=== PATIENT | female | born 1955 | race Caucasian/White ===

== ENCOUNTER 2020-02-20 06:35 | Observation (INO) ==
[2020-02-20] MEDS ORDERED: oxyCODONE/APAP 5/325MG TABLET PO ONE ×2 (06:58→12:42)
--- NOTE | 2020-02-20 07:09 | Emergency Department Note ---
Extremity Problem HPI General Chief complaint: Extremity Problem,Nontraumatic Stated complaint: Right knee pain Time Seen by Provider: 02/20/20 06:58 Source: patient Mode of arrival: EMS Limitations: no limitations History of Present Illness HPI Narrative: 64-year old patient presenting to the emergency department with a chief complaint of injury to the right knee patient with recent knee replacement having increasing pain last night. Patient reporting mechanism of injury was operative. This issue occurred less than 12 hours ago patient reports took hydrocodone without benefit her daughter also was unavailable to help care for her which she was anticipating. Exacerbating features are attempting to move it, pressure. Ameliorating factors are immobilization, pain medications. Patient denying symptoms of pain out of proportion to the extremity, pallor to the extremity, other color change, or paresthesias in the extremity. Patient denies injury to other parts of the body at the same time. Related Data Home Medications Medication Instructions Recorded Confirmed duloxetine [Cymbalta] 60 mg PO BID 03/05/17 02/17/20 Tymlos 80 mcg SUBCUT QDAY 02/10/20 02/17/20 gabapentin 600 mg PO TID 02/10/20 02/17/20 hydrocodone-acetaminophen 1 - 2 tab PO Q6H PRN 02/10/20 02/17/20 lisinopril 10 mg PO QDAY 02/10/20 02/17/20 lorazepam 1 mg PO TID PRN 02/10/20 02/17/20 nortriptyline 25 mg PO QHS 02/10/20 02/17/20 omeprazole 20 mg PO QDAY 02/10/20 02/17/20 Previous Rx's Medication Instructions Recorded aspirin 81 mg PO BID 14 Days #28 tab 02/18/20 hydrocodone-acetaminophen 1 tab PO Q4HP PRN #90 tab 02/18/20 methocarbamol 750 mg PO Q6HP PRN #60 tab 02/18/20 oxycodone 5 mg PO TID PRN #6 cap 02/20/20 Allergies Allergy/AdvReac Type Severity Reaction Status Date / Time topiramate [From Topamax] AdvReac Unknown Verified 02/20/20 06:41 Review of Systems ROS ROS Narrative: Narrative: All systems ED: reviewed and negative except as stated. PFSH Narrative Patient History Narrative: Narrative: Total knee replacement Medical/Surgical/Family History All Active Problems (Updated 02/20/20 @ 07:09 by Alek Mchugh MD) Encounter for post surgical wound check (Acute) Social History Smoking Status: Never smoker Exam Narrative Narrative: Narrative: General: Alert, interactive, appropriate Head: Atraumatic, normocephalic Eyes: Extraocular movements intact, sclera anicteric, no conjunctival injection Ears: Pinnae normal, no discharge Mouth: Oral mucosa moist, no acute swelling or evidence of infection Nares: No nasal discharge, patent bilaterally Neck: Trachea midline, full range of motion Chest: Symmetrical chest wall rise, breathing normally; nonlabored respirations Cardiovascular: Patient with excellent perfusion to the extremities; without tachycardia/bradycardia Extremities: Full range of motion in other joints, other extremities were warm well perfused, motor testing and ROM were intact, pt with intact sensation to the dorsal and plantar surfaces of his foot, affected extremity was with/out pulses +2 and symmetric posterior tibial and dorsalis pedis, there was/ not gross/subtle deformity of the area; patient states pain in the lower extremity feels it may be related to wearing compression stockings patient with good color and circulation distal lower extremity, contusion locally around the knee, no drainage or unusual erythema Neuro: Alert, oriented x3, cranial nerves II through XII grossly intact, patient without lateralizing findings such as weakness, or abnormal reflexes Psychiatric: Normal affect, normal mood General Limitations: no limitations Course Vital Signs Vital signs: Vital Signs Temperature 97.3 F 02/20/20 06:36 Pulse Rate 97 H 02/20/20 06:36 Respiratory Rate 16 02/20/20 06:36 Blood Pressure 135/91 02/20/20 06:36 Pulse Oximetry (%) 97 02/20/20 06:36 Temperature 97.3 F 02/20/20 06:36 Pulse Rate 97 H 02/20/20 06:36 Respiratory Rate 16 02/20/20 06:36 Blood Pressure 135/91 02/20/20 06:36 Pulse Oximetry (%) 97 02/20/20 06:36 [facility] Narrative Medical decision making narrative: This patient presenting with chief complaint of lower extremity injury. Patient was evaluated with combination of history/physical exam/radiologic evaluation. Diagnosis conclusion this case is patient has sustained a normal postoperative course for knee replacement. Patient is without evidence of acute neurovascular compromise of the extremity. In my medical opinion at this time patient can most reasonably be managed as an outpatient. I am also of the opinion that this patient does not have an acute emergent medical condition that would require admission transfer or additional laboratory/radiologic investigation. Discharge Plan Patient/Caregiver Discharge Instructions Pt seen by EMPLOYEE RELATIONS ADVISOR/PA only: No Clinical Impression: Encounter for post surgical wound check Activity Restrictions/Additional Instructions: Thank you, Keli Amaya, for coming to [facility] for your emergency medicine needs today. As your doctor today, Dr. Mchugh it is my greatest wish that we did address your concerns to the best of our ability in the emergency department. It is not infrequent that we are unable to arrive to a specific diagnostic conclusion in every case, however you do not have acute surgical wound infection, evidence of vascular insufficiency/DVT or other acute emergent pathology. Will give short course of oxycodone at this time. Return to the emergency department for any concerns, specifically any changes to the blood supply to your injured extremity, evidence of infection, or concerns for excessive pain. Please obtain consultation with your primary care physician within 7 days. Oftentimes patients must return to the emergency department for further evaluations if there are symptom changes/persistence. Simply put, if you are worried I am worried. Patient Disposition: Home, Self-Care Condition: Good Follow up with: Myrtle Merida ARNP [Primary Care Provider] - Prescriptions: New oxycodone 5 mg capsule 5 mg PO TID PRN (Reason: pain) Qty: 6 RF: 0 No Action duloxetine [Cymbalta] 60 MG capsule,delayed release(DR/EC) 60 mg PO BID RF: 0 hydrocodone-acetaminophen 10-325 mg Tablet 1 - 2 tab PO Q6H PRN (Reason: Pain) RF: 0 gabapentin 600 mg Tablet 600 mg PO TID RF: 0 nortriptyline 25 mg Capsule 25 mg PO QHS RF: 0 lisinopril 10 mg Tablet 10 mg PO QDAY RF: 0 omeprazole 20 mg Capsule,Delayed Release(Dr/Ec) 20 mg PO QDAY RF: 0 lorazepam 1 mg Tablet 1 mg PO TID PRN (Reason: Anxiety) RF: 0 Tymlos 80 mcg (3,120 mcg/1.56 mL) Pen Injector 80 mcg SUBCUT QDAY RF: 0 hydrocodone-acetaminophen 10-325 mg Tablet 1 tab PO Q4HP PRN (Reason: Per Pain Protocol) Qty: 90 RF: 0 methocarbamol 750 mg Tablet 750 mg PO Q6HP PRN (Reason: Muscle Spasm) Qty: 60 RF: 0 aspirin 81 mg Tablet,Chewable 81 mg PO BID 14 Days Qty: 28 RF: 0
[2020-02-20] MEDS ORDERED: KETOROLAC 15 MG/ML VIAL IV ONE (09:10)
[2020-02-20] MEDS ORDERED: HYDROmorphone 0.5 MG/0.5 ML SYRINGE IV PRN (10:20)
--- NOTE | 2020-02-20 12:30 | Internal Med History&Physical ---
HPI History of Present Illness Patient information: Note initiated : 02/20/20 at 12:26 pm Service Date, if different from initiated Date: [] Patient: Keli Byers a 64 y/o F admitted on for Right knee pain. Chief Complaint: Right knee postop pain History of present illness: Ms. Byers is a 64 year old F with a history of hypertension/neuropathy who recently underwent right knee replacement on 02/16. Patient was discharged home however patient continues to experience debilitating pain. Family was unable to take care of her. Patient has not been able to move or function due to immobilizing pain rated 6 out of 10-10 out of 10. Patient presents to the ER for evaluation. Following multiple attempts at opioid/pain management patient failed to improve and hence hospital service was requested for admission for pain management and until a safe discharge plan is available. At the time of my evaluation patient is alert but anxious. She endorses that the swelling and pain has progressively worsened to the point she is unable to ambulate or if bend her knee. She was not able to get out of the bathroom today for the same reason. She also noticed bruising around inside of the knee. She denies associated fever chills, fall Review of systems 10 point review system was performed and is negative except for ones cussed above PFSH PFSH All Active Problems (Updated 02/20/20 @ 07:09 by Alek Mchugh MD) Encounter for post surgical wound check (Acute) Social History smoking status: Never smoker MEDS/ALLERGIES Home Medications and Allergies Home Medications Medication Instructions Recorded Confirmed Type duloxetine [Cymbalta] 60 mg PO BID 03/05/17 02/17/20 History Tymlos 80 mcg SUBCUT QDAY 02/10/20 02/17/20 History gabapentin 600 mg PO TID 02/10/20 02/17/20 History hydrocodone-acetaminophen 1 - 2 tab PO Q6H PRN 02/10/20 02/17/20 History lisinopril 10 mg PO QDAY 02/10/20 02/17/20 History lorazepam 1 mg PO TID PRN 02/10/20 02/17/20 History nortriptyline 25 mg PO QHS 02/10/20 02/17/20 History omeprazole 20 mg PO QDAY 02/10/20 02/17/20 History aspirin 81 mg PO BID 14 Days #28 tab 02/18/20 Rx hydrocodone-acetaminophen 1 tab PO Q4HP PRN #90 tab 02/18/20 Rx methocarbamol 750 mg PO Q6HP PRN #60 tab 02/18/20 Rx oxycodone 5 mg PO TID PRN #6 cap 02/20/20 Rx Allergies Allergy/AdvReac Type Severity Reaction Status Date / Time topiramate [From Topamax] AdvReac Unknown Verified 02/20/20 06:41 EXAM Constitutional Vitals: Temp Pulse Resp BP Pulse Ox 97.3 F 88 16 134/80 96 02/20/20 06:36 02/20/20 11:28 02/20/20 06:36 02/20/20 11:15 02/20/20 11:28 Head normocephalic Oral cavity moist No ear nose discharge Eye movement symmetrical Neck supple no lymphadenopathy S1-S2 regular Nonlabored breathing Nondistended nontender abdomen Right knee swollen along with increasing ecchymosis/bruising and restricted movement due to pain. No fluctuance Skin no suspicious lesion Psych anxious but alert cooperative Neuro normal higher function A/P Narrative A/P Narrative: * Right knee postoperative pain/swelling-continue management opioids. Orthopedic consult, ultrasound knee/tib-fib/femur imaging * History neuropathy continue gabapentin * Hypertension continue HELLEN inhibitor * Prophylaxis on twice daily aspirin per orthopedics Plan * Observation admit * Pain management * Orthopedic consult * Right knee ultrasound/tibia and femur imaging * Pre-existing medical condition management home meds * PT OT Time Spent With Patient Time: Total time spent is greater than 50% in coordination of care (as documented) at patient's floor/unit and/or counseling patient:
[2020-02-20] MEDS ORDERED: ONDANSETRON 4 MG ODT TABLET SL PRN (13:29)
[2020-02-20] MEDS ORDERED: ONDANSETRON 4 MG/2 ML VIAL IV PRN (13:29)
[2020-02-20] MEDS ORDERED: MELATONIN 3 MG TABLET PO PRN (13:29)
[2020-02-20] MEDS ORDERED: ACETAMINOPHEN 650 MG/65 ML BOTTLE IV PRN (13:29)
[2020-02-20] MEDS ORDERED: HYDROcodone/APAP 5/325MG TABLET PO PRN (13:29)
[2020-02-20] MEDS ORDERED: MAGNESIUM SULFATE 2 GM/50 ML BAG IV PRN (13:29)
[2020-02-20] MEDS ORDERED: POTASSIUM CHLORIDE 20 MEQ PACKET PO PRN (13:29)
[2020-02-20] MEDS ORDERED: traMADol 50 MG TABLET PO PRN (13:29)
[2020-02-20] MEDS ORDERED: BISACODYL 10 MG SUPP.RECT PR PRN (13:29)
[2020-02-20] MEDS ORDERED: ACETAMINOPHEN 325 MG TABLET PO PRN (13:29)
[2020-02-20] MEDS: POLYETHYLENE GLYCOL 3350 17 GM PACKET PO PRN (16:49)
[2020-02-20] MEDS: 0.9 % SODIUM CHLORIDE 10 ML SYRINGE IV SCH ×2 (16:49→20:53)
--- NOTE | 2020-02-20 17:30 | XRay Report ---
CLINICAL INFORMATION: Pain and swelling COMPARISON: None. FINDINGS: Right total knee prostheses is anatomically aligned without loosening or infection. There is no osseous abnormality. The ankle mortise, talocalcaneal and all midfoot joints joints normal in width and alignment arthritic change. There is moderate diffuse soft tissue swelling. IMPRESSION: Moderate diffuse soft tissue tissue swelling typically indicative of edema or cellulitis Interpreted and Authenticated by: Franklin Corona 02/20/20
--- NOTE | 2020-02-20 17:32 | XRay Report ---
CLINICAL INFORMATION: pain andf swelling COMPARISON: None. FINDINGS: Right total hip prostheses and right total knee prostheses are anatomically aligned without loosening or infection. There are no osseous abnormalities. Moderate diffuse soft tissue swelling noted. IMPRESSION: Moderate diffuse soft tissue swelling typically indicative of edema or cellulitis. Interpreted and Authenticated by: Franklin Corona 02/20/20
--- NOTE | 2020-02-20 17:33 | Ultrasound Report ---
CLINICAL INFORMATION: knee swelling and pain- post op r/o ghematoma COMPARISON: None. FINDINGS: Diffuse edema appreciated but there is no fluid collection to suggest hematoma or abscess. IMPRESSION: No fluid collection suggest hematoma or abscess Interpreted and Authenticated by: Franklin Corona 02/20/20
[2020-02-20] MEDS: HYDROmorphone 0.5 MG/0.5 ML SYRINGE IV PRN ×2 (17:47→22:42)
[2020-02-20] MEDS ORDERED: LORazepam 1 MG TABLET PO PRN (19:29)
[2020-02-20] MEDS: HEPARIN 5,000 UNIT/ML VIAL SQ SCH (20:50)
[2020-02-20] MEDS: GABAPENTIN 300 MG CAPSULE PO SCH (20:51)
[2020-02-20] MEDS: DULoxetine 30 MG CAPSULE PO SCH (20:51)
[2020-02-20] MEDS: HYDROcodone/APAP 10/325MG TABLET PO PRN (20:51)
[2020-02-20] MEDS: SENNOSIDES/DOCUSATE SODIUM 1 TAB TABLET PO SCH (20:52)
[2020-02-20] MEDS: ASPIRIN 81 MG TAB.CHEW PO SCH (20:52)
[2020-02-20] MEDS: NORTRIPTYLINE 25 MG CAPSULE PO SCH (20:52)
[2020-02-20] MEDS: DOCUSATE SODIUM 100 MG CAPSULE PO SCH (20:53)
[2020-02-20] MEDS: METHOCARBAMOL 750 MG TABLET PO PRN (23:10)
[2020-02-21] MEDS: HYDROcodone/APAP 10/325MG TABLET PO PRN ×2 (01:42→06:10)
[2020-02-21] MEDS: HYDROmorphone 0.5 MG/0.5 ML SYRINGE IV PRN ×2 (02:50→18:50)
[2020-02-21] MEDS: 0.9 % SODIUM CHLORIDE 10 ML SYRINGE IV SCH ×3 (06:11→22:20)
[2020-02-21] MEDS: METHOCARBAMOL 750 MG TABLET PO PRN ×2 (06:11→21:43)
--- NOTE | 2020-02-21 08:19 | Progress Note ---
DATE OF VISIT: 02/20/2020 Patient was admitted yesterday for pain control and because her sister had a fever. She was discharged on Friday on hydrocodone. She was readmitted by the hospitalist for pain control and because she feels she needs to go to a residential. Physical exam this morning shows swelling of the leg. Her scratching looks better. Her wound is covered. There is no redness surrounding the small midline incision. She is readmitted until disposition is worked out. I upped her to morphine for better pain control as the hydrocodone was not strong enough. She will be continued on aspirin and will resume physical therapy and CPM. TJF:[email or web address] Job ID: [id number] Doc ID: [id number] Jose Manuel Tinoco MD
[2020-02-21 08:23] LABS: Eosinophils % (Manual) 3 % (0-7); Hematocrit 33.5 % (36.0-48.0); Hemoglobin 10.6 g/dL (12.0-15.0); Lymphocytes % 24 % (15-49); Mean Cell Volume 93.1 fL (80.0-100.0); Mean Corpuscular HGB Conc 31.6 g/dL (31.0-36.0); Mean Platelet Volume 9.8 fL (7.4-10.4); Monocytes % (Manual) 11 % (1-12); Platelet Count 316 K/mcL (140-440); Platelet Estimate NORMAL (Normal); RBC Morphology NORMAL (Normal); Red Cell Distribution Width 13.2 % (11.5-14.5); Segmented Neutrophils % 62 % (38-78); WBC 10.3 K/mcL (4.5-11.0)
[2020-02-21 09:32] LABS: ALT/SGPT 11 U/L (<40); AST/SGOT 20 U/L (<32); Albumin 3.6 gm/dL (3.2-5.2); Albumin/Globulin Ratio 1.3 (1.0-2.3); Alkaline Phosphatase 63 U/L (39-117); Bilirubin,Direct < 0.2 mg/dL (<0.3); Bilirubin,Total 0.5 mg/dL (0.1-1.0); Blood Urea Nitrogen 14 mg/dL (8-23); Calcium 9.1 mg/dL (8.6-10.4); Carbon Dioxide 27 mmol/L (22-30); Chloride 98 mmol/L (96-108); Globulin 2.8 gm/dL (2.2-3.7); Glomerular Filtration Rate 76; Glucose 99 mg/dL (70-105); Lactate Dehydrogenase 293 U/L (135-225); Phosphorous 4.8 mg/dL (2.5-4.5); Triglycerides 109 mg/dL (<150); Uric Acid 4.1 mg/dL (2.5-8.0)
[2020-02-21] MEDS: MULTIVIT,THER IRON,CA,FA & MIN 1 TABLET PO SCH (09:58)
[2020-02-21] MEDS: GABAPENTIN 300 MG CAPSULE PO SCH ×3 (09:58→21:33)
[2020-02-21] MEDS: DULoxetine 30 MG CAPSULE PO SCH ×2 (09:58→21:32)
[2020-02-21] MEDS: DOCUSATE SODIUM 100 MG CAPSULE PO SCH ×2 (09:58→21:33)
[2020-02-21] MEDS: ASPIRIN 81 MG TAB.CHEW PO SCH ×2 (09:58→21:33)
[2020-02-21] MEDS: OMEPRAZOLE 20 MG CAPSULE PO SCH (09:58)
[2020-02-21] MEDS: LISINOPRIL 10 MG TABLET PO SCH (09:58)
[2020-02-21] MEDS: HEPARIN 5,000 UNIT/ML VIAL SQ SCH ×2 (09:59→21:32)
[2020-02-21] MEDS: ABALOPARATIDE 80 MCG SUB-Q SCH (09:59)
[2020-02-21] MEDS: morphine 15 MG TABLET PO PRN ×4 (11:00→21:43)
[2020-02-21] MEDS: NORTRIPTYLINE 25 MG CAPSULE PO SCH (21:33)
[2020-02-21] MEDS: SENNOSIDES/DOCUSATE SODIUM 1 TAB TABLET PO SCH (21:33)
--- NOTE | 2020-02-21 22:44 | Internal Med Progress Note ---
SUBJECTIVE Subjective Patient information: Note initiated : 02/21/20 at 10:44 pm Service Date, if different from initiated Date: [] Patient: Keli Byers a 64 y/o F admitted on 02/20/20 for Right knee pain. Chief Complaint: History of present illness: Ms. Byers is a 64 year old F with a history of hypertension/neuropathy who recently underwent right knee replacement on 02/16. Patient was discharged home however patient continues to experience debilitating pain. Family was unable to take care of her. Patient has not been able to move or function due to immobilizing pain rated 6 out of 10-10 out of 10. Patient presents to the ER for evaluation. Following multiple attempts at opioid/pain management patient failed to improve and hence hospital service was requested for admission for pain management and until a safe discharge plan is available. At the time of my evaluation patient is alert but anxious. She endorses that the swelling and pain has progressively worsened to the point she is unable to ambulate or if bend her knee. She was not able to get out of the bathroom today for the same reason. She also noticed bruising around inside of the knee. She denies associated fever chills, fall 02/20 -patient doing well. No significant concerns per orthopedics. Ongoing physical therapy. Lower extremity imaging unremarkable for hematoma/effusions. Continue pain management as per orthopedics. Likely discharge in 24 hours. Constitutional Vitals: Vital Signs Temp Pulse Resp BP Pulse Ox 98.3 F 104 H 20 121/70 95 02/21/20 21:44 02/21/20 21:44 02/21/20 21:44 02/21/20 21:44 02/21/20 21:44 Period Temp Pulse Resp BP Sys/Velasquez Pulse Ox Last 24 Hr 97.3 F-98.6 F 84-104 16-20 111-132/70-86 91-96 Intake and Output 02/21/20 02/21/20 02/22/20 13:59 21:59 05:59 Intake Total 1280 Output Total 250 Balance 1030 Weight 84.232 kg Patient Weight 02/22/20 05:59 Weight 84.232 kg alert oriented nonlabored breathing Right knee swelling improved No anxiety Intake & Output: Intake & Output 02/21/20 02/21/20 02/22/20 13:59 21:59 05:59 Intake Total 1280 Output Total 250 Balance 1030 Weight 84.232 kg Intake: Oral 1280 Output: Void Amount 250 Other: Meal Lunch Percent of Meal Consumed 100% Feeding Ability Independent Urine Appearance Clear Clear Urine Color Bright Yellow Straw Urine Odor Normal # Voids 1 1 OBJ DATA Labs CBC & Chem 7: 02/21/20 05:11 02/21/20 05:11 Labs: Abnormal Lab Results 02/21/20 02/21/20 05:11 05:11 RBC 3.60 L Hgb 10.6 L Hct 33.5 L Phosphorus 4.8 H Lactate Dehydrogenase 293 H C-Reactive Protein 13.40 H Meds: Medications Acetaminophen (Tylenol) 650 mg PO Q4-6HP PRN; Protocol PRN Reason: Per Pain Protocol/Fever > 101 Aspirin (Aspirin) 81 mg PO BID [facility] Last Admin: 02/21/20 21:33 Dose: 81 mg Documented by: Bisacodyl (Dulcolax) 10 mg SC Q2-3DAYS PRN PRN Reason: Constipation Docusate Sodium (Colace) 100 mg PO BID [facility] Last Admin: 02/21/20 21:33 Dose: 100 mg Documented by: Duloxetine HCl (Cymbalta) 60 mg PO BID [facility] Last Admin: 02/21/20 21:32 Dose: 60 mg Documented by: Gabapentin (Neurontin) 600 mg PO TID [facility] Last Admin: 02/21/20 21:33 Dose: 600 mg Documented by: Heparin Sodium (Porcine) (Heparin) 5,000 unit SQ Q12 [facility] Last Admin: 02/21/20 21:32 Dose: 5,000 unit Documented by: Hydromorphone HCl (Dilaudid) 0.25 - 0.5 mg IV Q4HP PRN; Protocol PRN Reason: Per Pain Protocol Last Admin: 02/21/20 18:50 Dose: 0.5 mg Documented by: Acetaminophen (Ofirmev) 650 mg in 65 mls @ 130 mls/hr IV Q6HP PRN; Protocol PRN Reason: Per Pain Protocol/Fever > 101 Magnesium Sulfate (Magnesium Sulfate) 2 gm in 50 mls @ 50 mls/hr IV UD PRN PRN Reason: MG = or < 1.7 Iron Carb/Multivit/[place]/Folic Acid (Multivitamin W/Minerals) 1 tab PO DAILY [facility] Last Admin: 10/19/20 09:58 Dose: 1 tab Documented by: Lisinopril (Zestril) 10 mg PO QDAY [facility] Last Admin: 02/21/20 09:58 Dose: 10 mg Documented by: Lorazepam (Ativan) 1 mg PO TIDP PRN PRN Reason: Anxiety Last Admin: 02/20/20 23:10 Dose: 1 mg Documented by: Melatonin (Melatonin 3mg Tablet) 3 mg PO HSP PRN PRN Reason: Insomnia Methocarbamol (Robaxin) 750 mg PO Q6HP PRN PRN Reason: Muscle Spasm Last Admin: 02/21/20 21:43 Dose: 750 mg Documented by: Morphine Sulfate (Morphine) 15 - 30 mg PO Q4HP PRN PRN Reason: Pain Last Admin: 02/21/20 21:43 Dose: 15 mg Documented by: Nortriptyline HCl (Pamelor) 25 mg PO QHS [facility] Last Admin: 02/21/20 21:33 Dose: 25 mg Documented by: Omeprazole (Prilosec) 20 mg PO QDAY [facility] Last Admin: 02/21/20 09:58 Dose: 20 mg Documented by: Ondansetron HCl (Zofran Odt) 4 mg SL Q4-6HP PRN; Protocol PRN Reason: Nausea And Vomiting Ondansetron HCl (Zofran) 4 mg IV Q4-6HP PRN; Protocol PRN Reason: Nausea And Vomiting Abaloparatide [ Tymlos] 80 Mcg Syringe 80 dose SUB-Q QDAY [facility] Last Admin: 02/21/20 09:59 Dose: Not Given Documented by: Polyethylene Glycol (Miralax) 17 gm PO DAILYP PRN PRN Reason: Constipation Last Admin: 02/20/20 16:49 Dose: 17 gm Documented by: Potassium Chloride (Klor-Con) 40 meq PO DAILYP PRN PRN Reason: K+ < 3.5 Senna/Docusate Sodium (Senna Plus Tablet) 1 tab PO HS [facility] Last Admin: 02/21/20 21:33 Dose: 1 tab Documented by: Sodium Chloride (Saline Flush) 10 ml IV Q8 [facility] Last Admin: 02/21/20 14:10 Dose: 10 ml Documented by: A/P Narrative A/P Narrative: * Right knee postoperative pain/swelling-no significant abnormality on lower extremity imaging. Orthopedic on board, continue pain management * History neuropathy continue gabapentin * Hypertension continue HELLEN inhibitor * Prophylaxis on twice daily aspirin per orthopedics Plan * Continue pain management/therapies as per orthopedics * Pre-existing medical condition management home meds * PT OT * Discharge likely in 24 hours Time Spent With Patient Time: Total time spent is greater than 50% in coordination of care (as documented) at patient's floor/unit and/or counseling patient:
[2020-02-22] MEDS: morphine 15 MG TABLET PO PRN ×3 (01:39→13:10)
[2020-02-22] MEDS: 0.9 % SODIUM CHLORIDE 10 ML SYRINGE IV SCH (06:11)
--- NOTE | 2020-02-22 06:31 | XRay Report ---
INDICATION: Knee pain TECHNIQUE: AP portable semiupright chest x-ray COMPARISON: Previous chest x-rays dated 03/08/2019 and 02/23/2019 FINDINGS: Lungs:Lungs are negative. No focal pulmonary parenchymal infiltrate or mass Heart, vascular:No significant cardiomegaly. Pulmonary vascularity is normal. No pulmonary edema or pulmonary congestion Mediastinum, luis carlos:No mediastinal widening. No hilar mass Pleura:No pleural fluid. No pleural-based mass or calcification Skeletal:Negative. IMPRESSION: 1. Negative AP chest x-ray 2. No significant interval change Interpreted and Authenticated by: Franklin Hinton 02/22/20
--- NOTE | 2020-02-22 08:43 | Discharge Summary ---
Discharge Provider Provider Patient information: Note initiated : 02/22/20 at 8:41 am Service Date, if different from initiated Date: [] Patient: Keli Byers a 64 y/o F admitted on 02/20/20 for Right knee pain. Discharge diagnosis * Right knee postoperative pain/swelling-clinically improved. No evidence of effusion/hematoma on imaging. Discharging with advise to continue home health PT/follow-up with orthopedics and pain management as per orthopedics. * History neuropathy continue gabapentin * Hypertension continue HELLEN inhibitor Brief hospital course History of present illness: Ms. Byers is a 64 year old F with a history of hypertension/neuropathy who recently underwent right knee replacement on 02/16. Patient was discharged home however patient continues to experience debilitating pain. Family was unable to take care of her. Patient has not been able to move or function due to immobilizing pain rated 6 out of 10-10 out of 10. Patient presents to the ER for evaluation. Following multiple attempts at opioid/pain management patient failed to improve and hence hospital service was requested for admission for pain management and until a safe discharge plan is available. At the time of my evaluation patient is alert but anxious. She endorses that the swelling and pain has progressively worsened to the point she is unable to ambulate or bend her knee. She was not able to get out of the bathroom today for the same reason. She also noticed bruising around inside of the knee. She denies associated fever chills, fall 02/20 -patient doing well. No significant concerns per orthopedics. Ongoing physical therapy. Lower extremity imaging unremarkable for hematoma/effusions. Continue pain management as per orthopedics. Likely discharge in 24 hours. 02/21-patient doing well. Discharging home with home health physical therapy. Pain in good control. Noticed significant postoperative swelling. Date of admission: 02/20/20 13:17 Discharge date: 02/22/20 Primary care physician: Myrtle Merida Consults: 02/20/20 Consult to Physician [CONS] Stat Comment: Consulting Provider: Boris Dickey Reason For Exam: Physician to Consult 02/21/20 08:25 Consult to Physician [CONS] Routine Comment: Consulting Provider: [facility] Reason For Exam: Physician to Consult Discharge Meds Discharge Medications Home Medications duloxetine [Cymbalta] 60 mg PO BID 03/05/17 [History Confirmed 02/20/20 Last Taken 1 Day Ago ~02/19/20] Tymlos 80 mcg SUBCUT QDAY 02/10/20 [History Confirmed 02/20/20 Last Taken 1 Day Ago ~02/19/20] gabapentin 600 mg PO TID 02/10/20 [History Confirmed 02/20/20 Last Taken 1 Day Ago ~02/19/20] lisinopril 10 mg PO QDAY 02/10/20 [History Confirmed 02/20/20 Last Taken 1 Day Ago ~02/19/20] lorazepam 1 mg PO TID PRN 02/10/20 [History Confirmed 02/20/20 Last Taken 1 Day Ago ~02/19/20] nortriptyline 25 mg PO QHS 02/10/20 [History Confirmed 02/20/20 Last Taken 1 Day Ago ~02/19/20] omeprazole 20 mg PO QDAY 02/10/20 [History Confirmed 02/20/20 Last Taken 1 Day Ago ~02/19/20] aspirin 81 mg PO BID 14 Days #28 tab 02/18/20 [Rx Confirmed 02/20/20 Last Taken 1 Day Ago ~02/19/20] methocarbamol 750 mg PO Q6HP PRN #60 tab 02/18/20 [Rx Confirmed 02/20/20 Last Taken 1 Day Ago ~02/19/20] oxycodone 5 mg PO TID PRN #6 cap 02/20/20 [Rx Last Taken Unknown] methocarbamol 750 mg PO Q6HP PRN #14 tab 02/22/20 [Rx Last Taken Unknown] COURSE Hospital Course Hospital course: . Discharge diagnosis: . Time Spent with Patient Time attestation: Total time spent providing and/or coordinating discharge services: EXAM Constitutional Vitals: Temp Pulse Resp BP Pulse Ox 98.1 F 95 H 18 116/77 92 02/22/20 07:01 02/22/20 07:01 02/22/20 07:01 02/22/20 07:01 02/22/20 07:01 Discharge Data Data Completed and Pending Labs on day of discharge: Labs from last 24 hours 02/22/20 02/22/20 02/21/20 05:18 05:18 05:11 WBC Pending RBC Pending Hgb Pending Hct Pending MCV Pending MCH Pending MCHC Pending RDW Pending Plt Count Pending MPV Pending Band Neutrophils % Pending Platelet Estimate Pending RBC Morphology Pending Sodium Pending 136 Potassium Pending 4.8 Chloride Pending 98 Carbon Dioxide Pending 27 Anion Gap Pending 11.0 BUN Pending 14 Creatinine Pending 0.8 GFR Calculation Pending 76 Glucose Pending 99 Uric Acid Pending 4.1 Calcium Pending 9.1 Phosphorus Pending 4.8 H Magnesium Pending 2.2 Total Bilirubin Pending 0.5 Direct Bilirubin Pending < 0.2 GGT Pending 16 AST Pending 20 ALT Pending 11 Alkaline Phosphatase Pending 63 Lactate Dehydrogenase Pending 293 H C-Reactive Protein 13.40 H Total Protein Pending 6.4 Albumin Pending 3.6 Globulin Pending 2.8 Albumin/Globulin Ratio Pending 1.3 Triglycerides Pending 109 Discharge Plan Patient/Caregiver Discharge Instructions Activity: increase activity as tolerated Diet: Regular Diet Instructions: Laxative, Stool Softeners (By mouth), Morphine, Slow Release (By mouth), Pain Management (DC) Activity Restrictions/Additional Instructions: Resume home diet as tolerated Take all meals up in chair sitting at 90 degrees. Continue fall precautions. Weight bearing/activity and joint mobilization as per orthopedics. Weight bearing as tolerated. Continue physical therapy as previously. Please cloth picker CPM from [facility] (within 24 hours of discharge). Instructions for use: Start CPM at 40 degrees flexion and advance as tolerated to 90 degrees flexion. Use 3x daily for 2 hrs each time as tolerated. Follow up with Myrtle Merida on 02/27. Check in at 9:45 am. Take all medication as directed. Your prescriptions are with your discharge paperwork. Take your prescription, insurance cards, and photo ID to cloth picker your medication. Pain medication can cause constipation; continue to take an over the counter stool softener and/or laxative twice daily while on pain medication. Continue to take aspirin 81mg 2x daily as previously prescribed. Take aspirin 2x daily through Feb 25 evening dose. Use home supply of Robaxin. Return to ER if worsening fever, chills, nausea and/or vomiting, uncontrolled pain, chest pain, shortness of breath, diarrhea, unable to go to the bathroom, bleeding, return of symptoms, or other acute symptom. This discharge packet is provided to you to help keep you informed about your care. We want to ensure you get everything you need when you go home. You will also be receiving a call from us in a few days to follow up with you and see how you are doing since your discharge. This gives us a chance to listen to any concerns you maybe experiencing since you were discharged or any additional needs you may have, as well as providing us feedback on your care experience. We strive to always provide excellent care and thank you for your feedback and for choosing [facility]. Prescriptions: New oxycodone 5 mg capsule 5 mg PO TID PRN (Reason: pain) Qty: 6 RF: 0 methocarbamol 750 mg Tablet 750 mg PO Q6HP PRN (Reason: Muscle Spasm) Qty: 14 RF: 0 Continued duloxetine [Cymbalta] 60 MG capsule,delayed release(DR/EC) 60 mg PO BID RF: 0 gabapentin 600 mg Tablet 600 mg PO TID RF: 0 nortriptyline 25 mg Capsule 25 mg PO QHS RF: 0 lisinopril 10 mg Tablet 10 mg PO QDAY RF: 0 omeprazole 20 mg Capsule,Delayed Release(Dr/Ec) 20 mg PO QDAY RF: 0 lorazepam 1 mg Tablet 1 mg PO TID PRN (Reason: Anxiety) RF: 0 Tymlos 80 mcg (3,120 mcg/1.56 mL) Pen Injector 80 mcg SUBCUT QDAY RF: 0 methocarbamol 750 mg Tablet 750 mg PO Q6HP PRN (Reason: Muscle Spasm) Qty: 60 RF: 0 aspirin 81 mg Tablet,Chewable 81 mg PO BID 14 Days Qty: 28 RF: 0 Discontinued hydrocodone-acetaminophen 10-325 mg Tablet 1 - 2 tab PO Q6H PRN (Reason: Pain) RF: 0 hydrocodone-acetaminophen 10-325 mg Tablet 1 tab PO Q4HP PRN (Reason: Per Pain Protocol) Qty: 90 RF: 0 Other Ambulatory Orders: CPM Discharge Order (ONCE) Location: None Selected Ordered By: Jose Manuel Tinoco Follow Up Plan Follow up with: Myrtle Merida ARNP [Primary Care Provider] - Patient Disposition: Home Health Service Prognosis: Good Rehab Potential: Fair I certify that the patient requires SNF services: No Overall status at discharge: patient is progressing back to baseline Discharge Date/Time: 02/22/20 13:15 Discharge Orders: Discharge Order (Routine); Ordered 02/22/20 Ordered By: Boris Dickey Discharge Comment: Wheeled pt to exit and met daughter
[2020-02-22 08:53] LABS: ALT/SGPT 11 U/L (<40); AST/SGOT 16 U/L (<32); Albumin 3.4 gm/dL (3.2-5.2); Albumin/Globulin Ratio 1.3 (1.0-2.3); Alkaline Phosphatase 64 U/L (39-117); Bilirubin,Direct < 0.2 mg/dL (<0.3); Bilirubin,Total 0.4 mg/dL (0.1-1.0); Blood Urea Nitrogen 14 mg/dL (8-23); Calcium 8.6 mg/dL (8.6-10.4); Carbon Dioxide 25 mmol/L (22-30); Chloride 97 mmol/L (96-108); Globulin 2.6 gm/dL (2.2-3.7); Glomerular Filtration Rate 76; Glucose 111 mg/dL (70-105); Lactate Dehydrogenase 257 U/L (135-225); Phosphorous 3.3 mg/dL (2.5-4.5); Triglycerides 129 mg/dL (<150); Uric Acid 4.4 mg/dL (2.5-8.0)
[2020-02-22] MEDS: GABAPENTIN 300 MG CAPSULE PO SCH (09:02)
[2020-02-22] MEDS: DULoxetine 30 MG CAPSULE PO SCH (09:02)
[2020-02-22] MEDS: LISINOPRIL 10 MG TABLET PO SCH (09:02)
[2020-02-22] MEDS: OMEPRAZOLE 20 MG CAPSULE PO SCH (09:02)
[2020-02-22] MEDS: METHOCARBAMOL 750 MG TABLET PO PRN (09:02)
[2020-02-22] MEDS: ASPIRIN 81 MG TAB.CHEW PO SCH (09:02)
[2020-02-22] MEDS: MULTIVIT,THER IRON,CA,FA & MIN 1 TABLET PO SCH (09:02)
[2020-02-22] MEDS: DOCUSATE SODIUM 100 MG CAPSULE PO SCH (09:02)
[2020-02-22] MEDS: HEPARIN 5,000 UNIT/ML VIAL SQ SCH (09:03)
[2020-02-22] MEDS: ABALOPARATIDE 80 MCG SUB-Q SCH (09:03)
[2020-02-22 09:10] LABS: Eosinophils % (Manual) 3 % (0-7); Hematocrit 31.3 % (36.0-48.0); Hemoglobin 9.7 g/dL (12.0-15.0); Lymphocytes % 24 % (15-49); Mean Cell Volume 95.1 fL (80.0-100.0); Mean Platelet Volume 10.1 fL (7.4-10.4); Monocytes % (Manual) 8 % (1-12); Platelet Count 328 K/mcL (140-440); Platelet Estimate NORMAL (Normal); RBC 3.29 M/mcL (4.00-5.20); RBC Morphology NORMAL (Normal); Red Cell Distribution Width 13.5 % (11.5-14.5); Segmented Neutrophils % 65 % (38-78); WBC 13.3 K/mcL (4.5-11.0)
[2020-02-22] MEDS: POLYETHYLENE GLYCOL 3350 17 GM PACKET PO PRN (09:10)
== END 2020-02-22 13:15 | disposition home health service (06) ==
LOC: ICU 06:35 → ED 06:35 → ICU 13:19 → MEDSUR 19:53
PROVIDERS: ADMIT Internal Medicine; ATTEND Internal Medicine

== ENCOUNTER 2020-03-08 10:38 | Inpatient (IN) ==
--- NOTE | 2020-03-08 11:36 | Cat Scan Report ---
History: Fell with head injury and loss of consciousness TECHNIQUE: The brain was imaged without contrast at 2.5 mm intervals. Sagittal and coronal reformats were created. The radiation exposure was limited using dose reduction technology. FINDINGS: There is mild swelling of the scalp over the lateral portion of the right forehead, near the right eyebrow. No skull fracture is present. No intracranial hemorrhage, cerebral edema or infarct are present. There is no mass effect. The ventricles are normal in size allowing for mild generalized cerebral atrophy. IMPRESSION: Mild cerebral atrophy. There is no evidence of acute brain injury. Small scalp hematoma in the right forehead Maday Meza was called with the results Interpreted and Authenticated by: Solis Orellana 03/08/20
[2020-03-08] MEDS: 0.9 % SODIUM CHLORIDE 1,000 ML IV SCH ×3 (11:49→19:18)
[2020-03-08 12:07] LABS: Basophils # (Auto) 0.06 K/mcL (0.00-0.20); Basophils % (Auto) 0.5 % (0.0-2.0); Eosinophils # (Auto) 0.22 K/mcL (0.00-0.70); Eosinophils % (Auto) 1.9 % (0.0-7.0); Hematocrit 28.7 % (36.0-48.0); Hemoglobin 9.4 g/dL (12.0-15.0); Lymphocytes # (Auto) 2.47 K/mcL (1.50-4.80); Lymphocytes % (Auto) 21.4 % (15.0-49.0); Mean Cell Volume 90.8 fL (80.0-100.0); Mean Corpuscular HGB Conc 32.8 g/dL (31.0-36.0); Mean Platelet Volume 9.3 fL (7.4-10.4); Monocytes # (Auto) 0.94 K/mcL (0.10-0.90); Monocytes % (Auto) 8.1 % (1.0-12.0); Neutrophils % (Auto) 68.1 % (38.0-78.0); Platelet Count 407 K/mcL (140-440); RBC 3.16 M/mcL (4.00-5.20); Red Cell Distribution Width 13.2 % (11.5-14.5); WBC 11.6 K/mcL (4.5-11.0)
[2020-03-08 12:26] LABS: ALT/SGPT 17 U/L (<40); AST/SGOT 38 U/L (<32); Albumin 3.8 gm/dL (3.2-5.2); Albumin/Globulin Ratio 1.8 (1.0-2.3); Alkaline Phosphatase 76 U/L (39-117); Bilirubin,Total 0.6 mg/dL (0.1-1.0); Blood Urea Nitrogen 21 mg/dL (8-23); Calcium 9.1 mg/dL (8.6-10.4); Carbon Dioxide 23 mmol/L (22-30); Chloride 94 mmol/L (96-108); Globulin 2.1 gm/dL (2.2-3.7); Glomerular Filtration Rate 36; Glucose 94 mg/dL (70-105)
--- NOTE | 2020-03-08 12:52 | XRay Report ---
HISTORY: Fell and split open the surgical incision anterior to the knee, status post recent arthroplasty FINDINGS: There is gas in the soft tissues anterior and above the patella due to the recent injury. Surrounding soft tissues are swollen. Small joint effusion is present. There is no fracture. The knee prosthesis remains well-positioned and there is no evidence of infection or loosening of the prosthesis. No other foreign body is present. IMPRESSION: Laceration anterior to the knee, with no underlying bone injury Interpreted and Authenticated by: Solis Orellana 03/08/20
[2020-03-08 12:57] LABS: INR 1.1 (0.9-1.1); Partial Thromboplastin Time 28.9 sec (20.0-37.0); Prothrombin Time 14.9 sec (11.9-14.5)
--- NOTE | 2020-03-08 14:55 | Emergency Department Note ---
Extremity Problem HPI General Chief complaint: Extremity Problem,Nontraumatic Stated complaint: Open surgical wound Time Seen by Provider: 03/08/20 10:57 Source: patient and EMS Mode of arrival: ambulatory Limitations: other (She is extremely sleepy, hard to get any reliable in formation from her at all.) History of Present Illness HPI Narrative: Narrative: 64-year-old female presents with EMS. She apparently had a right knee replacement by Dr. Tinoco sometime in the last 10 days or so. She apparently struggles to take care of herself at home. She arrives covered in feces and cat hair. States she supposed to have a storehouse clerk but the storehouse clerk cannot clean the last few time she has been there. It is unclear why. EMS reports the home is filthy. She fell 2 days ago and her right knee completely split open at the incision site. She did not come in immediately and it is unclear who called EMS today. She did hit her head and has little bit of a black eye. Does believe she lost consciousness but cannot be sure. Denies any headache. No neck pain or back pain. No numbness or tingling. States she really does not have much pain. Appears to be very sleepy. Apparently she is been in the ER multiple times since her surgery. Initially for it was for pain control. That does not seem to be an issue any longer but she has a very difficult time taking care of herself. No fever or chills. States she has been giving herself injections of blood thinners at home since surgery. Related Data Home Medications Medication Instructions Recorded Confirmed duloxetine [Cymbalta] 60 mg PO BID 03/05/17 03/08/20 Tymlos 80 mcg SUBCUT QDAY 02/10/20 02/20/20 gabapentin 600 mg PO TID 02/10/20 03/08/20 lisinopril 10 mg PO QDAY 02/10/20 03/08/20 lorazepam 1 mg PO TID PRN 02/10/20 03/08/20 nortriptyline 25 mg PO QHS 02/10/20 03/08/20 omeprazole 20 mg PO QDAY 02/10/20 03/08/20 atorvastatin 10 mg PO QHS 03/08/20 03/08/20 Previous Rx's Medication Instructions Recorded methocarbamol 750 mg PO Q6HP PRN #60 tab 02/18/20 Allergies Allergy/AdvReac Type Severity Reaction Status Date / Time tramadol AdvReac Mild Other Verified 02/22/20 07:44 topiramate [From Topamax] AdvReac Unknown Verified 02/20/20 06:41 Review of Systems ROS ROS Narrative: Narrative: All systems ED: reviewed and negative except as stated. [facility] Narrative Patient History Narrative: Narrative: Patient is extremely poor historian and little past medical history can be obtained at this time. We do know that she had a total knee sometime within the last 2 and weeks, right knee. Medical/Surgical/Family History All Active Problems (Updated 03/08/20 @ 14:57 by MUSTAPHA Hubbard) Encounter for post surgical wound check (Acute) Fall (Acute) Dehiscence of wound (Acute) Social History Smoking Status: Former smoker Alcohol Intake Frequency: does not drink Substance Use: does not use Exam Narrative Narrative: Narrative: General Limitations: other (She is extremely sleepy, hard to get any reliable information from her at all.) General appearance: Present alert; Absent grimacing Head Head: Present atraumatic and normocephalic Eye Eye: Present PERRL and nystagmus; Absent normal appearance (Right upper and lower eyelid with ecchymosis), EOMI and conjunctival injection ENT ENT: Present normal exam, normal oropharynx, mucous membranes moist, TM's normal bilaterally and normal external ear exam Neck Neck: Present normal inspection, full ROM and trachea midline; Absent tenderness and lymphadenopathy Chest Chest: Present symmetric chest wall rise; Absent tenderness and rash Respiratory Respiratory: Present normal lung sounds bilaterally and decreased breath sounds (Diminished slightly in bases bilaterally otherwise clear throughout); Absent respiratory distress, rales/crackles, wheezes, stridor and accessory muscle use Cardiovascular Cardiovascular: Present regular rate and normal heart sounds Extremities Extremities: Present normal capillary refill; Absent normal inspection (Has bruising throughout the right lower extremity, mostly pulled to the right foot. The right knee does have a 14 cm linear incision that is gaping 8 cm and wide o pen down throughout all muscle layers as well. There is no active bleeding or drainage.) Back Back: Present normal inspection; Absent tenderness Neurological Neurological: Present alert; Absent oriented X3 (Oriented to person and place but not time. Very forgetful.) and motor sensory deficit Psychiatric Psychiatric: Present normal affect and normal mood Skin Skin: Present warm (WNL), dry and normal color; Absent intact (Right knee incision is gaping open, please see extremity assessment) Course Course Course Narrative: @ noon Dr. Tinoco agrees to see pt. patient is going to have to return to order to have it cleaned out and repaired. In addition she really needs to go somewhere where she has help as she has recurrent ER visits, falls, and definitely has inability to not be able to care for herself at home. Also extremely filthy living conditions. I did speak with Dr. Tinoco in the [facility] from [facility]. The plan is to see if we can possibly admit this patient and then get her admitted to some kind of skilled facility at least during rehab time. For now Dr. Tinoco is going to take her to the OR to washout this knee. Vital Signs Vital signs: Vital Signs Temperature 98.4 F 03/08/20 10:40 Pulse Rate 102 H 03/08/20 10:40 Respiratory Rate 18 03/08/20 10:40 Blood Pressure 119/75 03/08/20 10:40 Pulse Oximetry (%) 97 03/08/20 10:40 Temperature 97.6 F 03/08/20 20:49 Pulse Rate 94 H 03/08/20 20:49 Respiratory Rate 16 03/08/20 20:49 Blood Pressure 121/75 03/08/20 20:49 Pulse Oximetry (%) 99 03/08/20 20:49 MDM MDM Narrative Medical decision making narrative: Narrative: Lab Data Result diagrams: 03/08/20 11:20 03/08/20 11:20 Labs: Lab Results 03/08/20 03/08/20 03/08/20 Range/Units 11: 11: 11:20 WBC 11.6 H (4.5-11.0) K/mcL RBC 3.16 L (4.00-5.20) M/mcL Hgb 9.4 L (12.0-15.0) g/dL Hct 28.7 L (36.0-48.0) % MCV 90.8 (80.0-100.0) fL MCH 29.7 (26.0-34.0) pg MCHC 32.8 (31.0-36.0) g/dL RDW 13.2 (11.5-14.5) % Plt Count 407 (140-440) K/mcL MPV 9.3 (7.4-10.4) fL Neut % (Auto) 68.1 (38.0-78.0) % Lymph % (Auto) 21.4 (15.0-49.0) % [place] % (Auto) 8.1 (1.0-12.0) % Eos % (Auto) 1.9 (0.0-7.0) % Baso % (Auto) 0.5 (0.0-2.0) % Lymph # (Auto) 2.47 (1.50-4.80) K/mcL [place] # (Auto) 0.94 H (0.10-0.90) K/mcL Eos # (Auto) 0.22 (0.00-0.70) K/mcL Baso # (Auto) 0.06 (0.00-0.20) K/mcL Absolute Neutrophils 7.86 (1.80-8.00) K/mcL ESR (0-20) mm/hr PT 14.9 H (11.9-14.5) sec INR 1.1 (0.9-1.1) APTT 28.9 (20.0-37.0) sec Sodium 129 L (133-145) mmol/L Potassium 3.7 (3.3-5.1) mmol/L Chloride 94 L (96-108) mmol/L Carbon Dioxide 23 (22-30) mmol/L Anion Gap 12.0 (8.0-16.0) BUN 21 (8-23) mg/dL Creatinine 1.5 H (0.6-1.1) mg/dL GFR Calculation 36 Glucose 94 (70-105) mg/dL Calcium 9.1 (8.6-10.4) mg/dL Total Bilirubin 0.6 (0.1-1.0) mg/dL AST 38 H (<32) U/L ALT 17 (<40) U/L Alkaline Phosphatase 76 (39-117) U/L C-Reactive Protein (0.03-0.80) mg/dL Total Protein 5.9 (5.9-8.4) gm/dL Albumin 3.8 (3.2-5.2) gm/dL Globulin 2.1 L (2.2-3.7) gm/dL Albumin/Globulin Ratio 1.8 (1.0-2.3) Synovial Source Synovial Color Synovial Appearance Synovial Nuc Cells /cumm Synovial Neutrophils (0-25) % Synovial Lymphocytes % Synovial Other Cells % SARS-CoV-2 (PCR) (Negative) 03/08/20 03/08/20 03/08/20 Range/Units 11:21 14:23 14:23 WBC (4.5-11.0) K/mcL RBC (4.00-5.20) M/mcL Hgb (12.0-15.0) g/dL Hct (36.0-48.0) % MCV (80.0-100.0) fL MCH (26.0-34.0) pg MCHC (31.0-36.0) g/dL RDW (11.5-14.5) % Plt Count (140-440) K/mcL MPV (7.4-10.4) fL Neut % (Auto) (38.0-78.0) % Lymph % (Auto) (15.0-49.0) % [place] % (Auto) (1.0-12.0) % Eos % (Auto) (0.0-7.0) % Baso % (Auto) (0.0-2.0) % Lymph # (Auto) (1.50-4.80) K/mcL [place] # (Auto) (0.10-0.90) K/mcL Eos # (Auto) (0.00-0.70) K/mcL Baso # (Auto) (0.00-0.20) K/mcL Absolute Neutrophils (1.80-8.00) K/mcL ESR 19 (0-20) mm/hr PT (11.9-14.5) sec INR (0.9-1.1) APTT (20.0-37.0) sec Sodium (133-145) mmol/L Potassium (3.3-5.1) mmol/L Chloride (96-108) mmol/L Carbon Dioxide (22-30) mmol/L Anion Gap (8.0-16.0) BUN (8-23) mg/dL Creatinine (0.6-1.1) mg/dL GFR Calculation Glucose (70-105) mg/dL Calcium (8.6-10.4) mg/dL Total Bilirubin (0.1-1.0) mg/dL AST (<32) U/L ALT (<40) U/L Alkaline Phosphatase (39-117) U/L C-Reactive Protein 5.30 H (0.03-0.80) mg/dL Total Protein (5.9-8.4) gm/dL Albumin (3.2-5.2) gm/dL Globulin (2.2-3.7) gm/dL Albumin/Globulin Ratio (1.0-2.3) Synovial Source Synovial Color Synovial Appearance Synovial Nuc Cells /cumm Synovial Neutrophils (0-25) % Synovial Lymphocytes % Synovial Other Cells % SARS-CoV-2 (PCR) Negative (Negative) 03/08/20 Range/Units 17:26 WBC (4.5-11.0) K/mcL RBC (4.00-5.20) M/mcL Hgb (12.0-15.0) g/dL Hct (36.0-48.0) % MCV (80.0-100.0) fL MCH (26.0-34.0) pg MCHC (31.0-36.0) g/dL RDW (11.5-14.5) % Plt Count (140-440) K/mcL MPV (7.4-10.4) fL Neut % (Auto) (38.0-78.0) % Lymph % (Auto) (15.0-49.0) % [place] % (Auto) (1.0-12.0) % Eos % (Auto) (0.0-7.0) % Baso % (Auto) (0.0-2.0) % Lymph # (Auto) (1.50-4.80) K/mcL [place] # (Auto) (0.10-0.90) K/mcL Eos # (Auto) (0.00-0.70) K/mcL Baso # (Auto) (0.00-0.20) K/mcL Absolute Neutrophils (1.80-8.00) K/mcL ESR (0-20) mm/hr PT (11.9-14.5) sec INR (0.9-1.1) APTT (20.0-37.0) sec Sodium (133-145) mmol/L Potassium (3.3-5.1) mmol/L Chloride (96-108) mmol/L Carbon Dioxide (22-30) mmol/L Anion Gap (8.0-16.0) BUN (8-23) mg/dL Creatinine (0.6-1.1) mg/dL GFR Calculation Glucose (70-105) mg/dL Calcium (8.6-10.4) mg/dL Total Bilirubin (0.1-1.0) mg/dL AST (<32) U/L ALT (<40) U/L Alkaline Phosphatase (39-117) U/L C-Reactive Protein (0.03-0.80) mg/dL Total Protein (5.9-8.4) gm/dL Albumin (3.2-5.2) gm/dL Globulin (2.2-3.7) gm/dL Albumin/Globulin Ratio (1.0-2.3) Synovial Source Right knee Synovial Color Red Synovial Appearance Bloody Synovial Nuc Cells 647 /cumm Synovial Neutrophils 70 H (0-25) % Synovial Lymphocytes 9 % Synovial Other Cells 21 % SARS-CoV-2 (PCR) (Negative) Discharge Plan Patient/Caregiver Discharge Instructions Pt seen by OCCUPATIONAL THERAPY AIDE/PA only: Yes Clinical Impression: Dehiscence of wound Fall Qualifiers: Encounter type: initial encounter Qualified Code(s): W19.XXXA - Unspecified fall, initial encounter Patient Disposition: Xfer As Outpt/Obs ([facility]) Condition: Fair Discharge Date/Time: 03/08/20 15:01 Discharge Location: [facility]
[2020-03-08] MEDS ORDERED: ceFAZolin 2 GM in DEXTROSE 5% IN WATER 50 ML IV SCH (15:45)
[2020-03-08] MEDS ORDERED: DEXAMETHASONE 10 MG/ML VIAL ONE (15:49)
[2020-03-08] MEDS ORDERED: PROPOFOL 200 MG/20 ML VIAL IV ONE (15:49)
[2020-03-08] MEDS ORDERED: LIDOCAINE HCL/PF 100 MG/5 ML SYRINGE IV ONE (15:49)
[2020-03-08] MEDS ORDERED: KETAMINE 100 MG/ML ML ONE (15:49)
[2020-03-08] MEDS ORDERED: ONDANSETRON 4 MG/2 ML VIAL ONE (15:49)
[2020-03-08] MEDS ORDERED: fentaNYL 100 MCG/2 ML VIAL IV ONE (15:49)
[2020-03-08] MEDS ORDERED: HYDROmorphone 0.5 MG/0.5 ML SYRINGE IV PRN (16:22)
[2020-03-08] MEDS ORDERED: LACTATED RINGERS 250 ML IV PRN (16:22)
[2020-03-08] MEDS ORDERED: NALOXONE HCL 0.4 MG/ML VIAL IV PRN (16:22)
[2020-03-08] MEDS ORDERED: MEPERIDINE 25 MG/ML SYRINGE IV PRN (16:22)
[2020-03-08] MEDS ORDERED: ACETAMINOPHEN 1,000 MG/100 ML BOTTLE IV ONE (16:22)
[2020-03-08] MEDS ORDERED: PROMETHAZINE 25 MG/ML VIAL IV PRN (16:22)
[2020-03-08] MEDS ORDERED: ONDANSETRON 4 MG/2 ML VIAL IV PRN ×3 (16:22→16:56)
[2020-03-08] MEDS ORDERED: diphenhydrAMINE 50 MG/ML VIAL IV PRN (16:22)
[2020-03-08] MEDS ORDERED: IPRATROPIUM/ALBUTEROL 3 ML AMPUL.NEB NEB PRN (16:22)
[2020-03-08] MEDS ORDERED: GENTAMICIN SULFATE 800 MG/20 ML VIAL IR ONE (16:26)
[2020-03-08] MEDS ORDERED: LACTATED RINGERS 1,000 ML IV SCH (16:30)
--- NOTE | 2020-03-08 16:41 | Internal Medicine Consult Note ---
HPI Data of Consult Primary Care Provider: Myrtle Merida Consult Narrative History of present illness: 64-year-old female who had a right total knee arthroplasty several weeks ago. She had been in the ER several times since that time with pain management issues and was actually admitted for several days and then sent home with home health. It appears that she is unable to care for self at home. Fell several days ago and her incision site opened up but she did not immediately come to the ED. At some point EMS was called and they brought her into the ED. EMS noted her home to be quite filthy. Pt stated she has a cleaning person but who has not been by lately. Patient denies any pain to her knee. But she appeared sleepy in the ED. also was covered with feces and cat hair. Additionally relating to the fall she hit her head and has a small hematoma over the right forehead. CT head was unremarkable for any acute pathology but does show some mild cerebral atrophy. Review of Systems: Unable to gather as patient is postop and still mostly sedated from anesthesia cc:: CC: Jose Manuel Tinoco [facility] All Active Problems (Updated 03/08/20 @ 14:57 by MUSTAPHA Hubbard) Encounter for post surgical wound check (Acute) Fall (Acute) Dehiscence of wound (Acute) Social History (Updated 03/08/20 @ 16:52 by Eulalio Slaughter DO) smoking status: Former smoker alcohol intake frequency: does not drink substance use type: does not use additional history: Past medical history: alf (current) use of opiate analgesic (ICD-V58.69) (AQB75-Q17.891) Opioid dependence (ICD-304.00) (CVK61-F45.20) HTN (ICD-401.9) (CNA99-H00) CKD stage 3 (gfr 30-59) (ICD-585.3) (AOE52-V75.3) Depression/anxiety (ICD-300.4) (WKV57-T77.8) Hyperlipidemia mixed (ICD-272.2) (AZN77-B56.2) GERD (ICD-530.81) (TZR72-R23.9) Occipital neuralgia (ICD-723.8) (LQJ92-Z42.81) Dizzy spells (ICD-780.4) (ZOQ53-H03) Fatigue, chronic (ICD-780.79) (GFC75-N63.83) Tremor, rest (ICD-333.1) (WFG95-O50.2) Osteopenia (ICD-733.90) (YJN81-E58.9) 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) (GKA98-Y50.90) DDD, cervical spine (ICD-722.4) (AOA96-R89.30) Cervical facet joint effusion (ICD-719.08) (NCR73-K60.48) Spinal stenosis, cervical (ICD-723.0) (NTM61-M92.02) Low back pain, chronic (ICD-724.2) (BWJ18-M69.5) Sacroiliac pain (ICD-724.6) (KGP30-M91.3) Lumbar stenosis (ICD-724.02) (NKJ08-W43.06) Shoulder joint pain, left (ICD-719.41) (LOU42-D99.512) Shoulder impingement syndrome, right (ICD-726.2) (QTL48-V79.41) DJD, left shoulder (ICD-715.91) (GLB50-M84.012) DJD of bilateral hands (ICD-715.94) (ITH79-W81.90) DJD, foot (ICD-715.97) (CGJ91-V33.079) Hx of closed head injury (ICD-V15.52) (FJA36-G26.820) Surgical History: C 5-6 fusion,left shoulder arthroscopy 1999 and 2009,Left carpal tunnel release 1999, 2013,Diagnostic laparoscopy with removal of right uterine tube cyst 2013,neck surgery C 3-4 surgery, - spur removal, 2015, Left wrist- removed bone; bone graph, hysterectomy age 23-PID, unilateral oophorectomy and salpingectomy, right sided,tonsillectomy age 13,2015 right total hip,2016-lumbar decompression,2017-right 2nd intradigital neurectomy, L3-5 fusion 03/05/19- Dr Rawls, left shoulder 2020,. Family History: Reviewed, no changes required. Mother (biol.) - Colon Cancer Father (biol.) - Alcoholism Brother (full) - Asthma, Hypertension, Stroke/CVA Daughter (biol.) - esophageal stricture Social History: Smoked Tobacco Use: Never smoker Smokeless Tobacco Use: Never Passive smoke exposure: no Drug use: no HIV high-risk behavior: no Caffeine use: 1 drinks per day Alcohol use: no Exercise: no Marital Status: Current Employment: disabled has service dog that can hand her things and can help her get up if she falls- [employer] Home Medications and Allergies Home Medications Medication Instructions Recorded Confirmed Type duloxetine [Cymbalta] 60 mg PO BID 03/05/17 03/08/20 History Tymlos 80 mcg SUBCUT QDAY 02/10/20 02/20/20 History gabapentin 600 mg PO TID 02/10/20 03/08/20 History lisinopril 10 mg PO QDAY 02/10/20 03/08/20 History lorazepam 1 mg PO TID PRN 02/10/20 03/08/20 History nortriptyline 25 mg PO QHS 02/10/20 03/08/20 History omeprazole 20 mg PO QDAY 02/10/20 03/08/20 History methocarbamol 750 mg PO Q6HP PRN #60 tab 02/18/20 03/08/20 Rx atorvastatin 10 mg PO QHS 03/08/20 03/08/20 History oxycodone 5 mg PO Q4H PRN 03/08/20 History Allergies Allergy/AdvReac Type Severity Reaction Status Date / Time tramadol AdvReac Mild Other Verified 02/22/20 07:44 topiramate [From Topamax] AdvReac Unknown Verified 02/20/20 06:41 EXAM Constitutional Vitals: Temp Pulse Resp BP Pulse Ox 98.4 F 85 18 118/65 96 03/08/20 10:40 03/08/20 14:18 03/08/20 12:35 03/08/20 14:18 03/08/20 14:18 Exam: General: sedated from surgery, No acute Distress Eyes/N/T: EOMI, PERRL, Head/Neck: neck supple, normocephalic atraumatic, ecchymosis right forehead over eye CV: RRR, No murmurs, normal s1/s2 Pulm: Clear b/l, no wheezing/rhonchi/rales Abd: soft, nontender, +BS x4 Ext: no clubbing/cyanosis/edema. right leg in dressings Neuro: Patient is sedated postop from anesthesia unable to do thorough neuro exam Skin: warm/dry DATA Data Completed and Pending Labs: Labs from last 24 hours 03/08/20 03/08/20 03/08/20 14:23 14:23 11:21 WBC RBC Hgb Hct MCV MCH MCHC RDW Plt Count MPV Neut % (Auto) Lymph % (Auto) [place] % (Auto) Eos % (Auto) Baso % (Auto) Lymph # (Auto) [place] # (Auto) Eos # (Auto) Baso # (Auto) Absolute Neutrophils ESR Pending PT INR APTT Sodium Potassium Chloride Carbon Dioxide Anion Gap BUN Creatinine GFR Calculation Glucose Calcium Total Bilirubin AST ALT Alkaline Phosphatase C-Reactive Protein 5.30 H Total Protein Albumin Globulin Albumin/Globulin Ratio SARS-CoV-2 (PCR) Negative 03/08/20 03/08/20 03/08/20 11:20 11:20 11:20 WBC 11.6 H RBC 3.16 L Hgb 9.4 L Hct 28.7 L MCV 90.8 MCH 29.7 MCHC 32.8 RDW 13.2 Plt Count 407 MPV 9.3 Neut % (Auto) 68.1 Lymph % (Auto) 21.4 [place] % (Auto) 8.1 Eos % (Auto) 1.9 Baso % (Auto) 0.5 Lymph # (Auto) 2.47 [place] # (Auto) 0.94 H Eos # (Auto) 0.22 Baso # (Auto) 0.06 Absolute Neutrophils 7.86 ESR PT 14.9 H INR 1.1 APTT 28.9 Sodium 129 L Potassium 3.7 Chloride 94 L Carbon Dioxide 23 Anion Gap 12.0 BUN 21 Creatinine 1.5 H GFR Calculation 36 Glucose 94 Calcium 9.1 Total Bilirubin 0.6 AST 38 H ALT 17 Alkaline Phosphatase 76 C-Reactive Protein Total Protein 5.9 Albumin 3.8 Globulin 2.1 L Albumin/Globulin Ratio 1.8 SARS-CoV-2 (PCR) A/P Narrative A/P Narrative: A: *PINEDA: likely prerenal, plus ACEI *Volume depletion: *Inability to care for self at home: *AMS (drowsiness/confusion) & Falling: likely polypharmacy/pain meds with volume depletion and possible early dementia w/cerebral atrophy + recent TKA + Neuropathy + being overweight/borderline obese all likely contributing to her falling at home -recent admit for pain with pain med adjustment, on robaxin/oxycodone. also takes ativan/lakhwinder. -gabapentin likely contributing to drowsiness given renal fxn, among the other likely contributors above *?early Dementia: -CT with mild generalized cerebral atrophy -will perform SLUMS exam likely tomorrow when more alert *Depression/anxiety: *CKD II-III: *HTN/HLD: *GERD: *Chronic pain: *Neuropathy: *Incision site dehiscence from previous TKA: / fall *Overweight/borderline Obese: *Generalized weakness/deconditioning/debility: P: -Ortho for washout -IVF's -f/u renal fxn -hold lakhwinder for now, and renally dose upon d/c if necessary -check UA/UDS -cont duloxetine -hold acei for pineda -hold ativan for sedation -pt/ot -CM for placement -ppx:per ortho Time Spent With Patient Time: Total time spent is greater than 50% in coordination of care (as documented) at patient's floor/unit and/or counseling patient:
[2020-03-08] MEDS ORDERED: VANCOMYCIN IV ONE (16:47)
[2020-03-08] MEDS ORDERED: SODIUM CHLORIDE 0.9% IV ONE (16:47)
[2020-03-08] MEDS ORDERED: TOBRAMYCIN SULFATE 1.2 GM VIAL TOPICAL ONE (16:49)
[2020-03-08] MEDS ORDERED: POLYETHYLENE GLYCOL 3350 17 GM PACKET PO PRN (16:56)
[2020-03-08] MEDS ORDERED: BENZOCAINE/MENTHOL 1 LOZENGE PO PRN (16:56)
[2020-03-08] MEDS ORDERED: BISACODYL 10 MG SUPP.RECT PR PRN (16:56)
[2020-03-08] MEDS ORDERED: TRANEXAMIC ACID 1,000 MG/10 ML VIAL IV ONE (16:56)
[2020-03-08] MEDS ORDERED: FLEETS ADULT ENEMA PR PRN (16:56)
[2020-03-08] MEDS ORDERED: MAGNESIUM HYDROXIDE 30 ML ORAL.SUSP PO PRN (16:56)
[2020-03-08] MEDS ORDERED: 0.45 % SODIUM CHLORIDE 1,000 ML IV SCH (17:00)
[2020-03-08] MEDS ORDERED: morphine 4 MG/ML VIAL IV PRN (17:02)
[2020-03-08] MEDS ORDERED: METHOCARBAMOL 750 MG TABLET PO PRN (17:05)
[2020-03-08] MEDS ORDERED: LORazepam (PP) 1 MG TABLET (#4) PO PRN (17:05)
--- NOTE | 2020-03-08 17:40 | Brief Operative Note ---
Brief Operative Note Date of procedure: 03/08/20 Pre-op diagnosis: traumatic wound dehiscence Post-op diagnosis: same Procedure: secondary wound closure Anesthesia: GETA Findings: dehisced wound; no abscess Complications: none Surgeon: Jose Manuel Tinoco Bag Sorter: Anshu Moss Estimated blood loss (cc): 0 Tourniquet Time (Minutes): 45 Specimens Removed/Pathology: other (cell count; culture x 2) Condition: stable Disposition: floor
[2020-03-08] MEDS ORDERED: LABETALOL 5 MG/ML ML IV PRN (17:46)
[2020-03-08] MEDS: fentaNYL 100 MCG/2 ML VIAL IV PRN ×2 (17:48→17:52)
[2020-03-08] MEDS: HYDROcodone/APAP 10/325MG TABLET PO PRN ×2 (18:48→23:24)
[2020-03-08 20:54] LABS: Appearance,Synovial Fluid Bloody; Color,Synovial Fluid Red; Lymphocytes,Synovial Fluid 9 %; Neutrophils,Synovial Fluid 70 % (0-25); Nucleated Cells,Synovial Fld 647 /cumm; Other Cells,Synovial Fluid 21 %
[2020-03-08] MEDS ORDERED: LORazepam 1 MG TABLET PO PRN (20:56)
[2020-03-08] MEDS ORDERED: NON FORMULARY MEDICATION 1 DOSE MISCELL (Gabapentin 600 MG) PO SCH (21:00)
[2020-03-08] MEDS: 0.9 % SODIUM CHLORIDE 10 ML SYRINGE IV SCH (21:11)
[2020-03-08 21:20] LABS: Appearance,Urine CLEAR (Clear); Bilirubin,Urine Negative (Negative); Color,Urine STRAW; Culture Indicated,Urine No; Glucose,Urine (UA) Negative (Negative); Ketones,Urine 20 mg/dL (Negative); Leukocyte Esterase,Urine Negative /ug (Negative); Nitrate,Urine Negative (Negative); Protein,Urine Negative (Negative); Specific Gravity,Urine 1.012 (1.000-1.035); Urine Blood Negative (Negative); Urobilinogen,Urine Negative
[2020-03-08] MEDS: GABAPENTIN 300 MG CAPSULE PO SCH (21:20)
[2020-03-08] MEDS: ASPIRIN 81 MG TAB.CHEW PO SCH (21:20)
[2020-03-08] MEDS: DULoxetine 30 MG CAPSULE PO SCH (21:20)
[2020-03-08] MEDS: DOCUSATE SODIUM 100 MG CAPSULE PO SCH (21:20)
[2020-03-08] MEDS: ATORVASTATIN 10 MG TABLET PO SCH (21:20)
[2020-03-08] MEDS: NORTRIPTYLINE 25 MG CAPSULE PO SCH (21:21)
[2020-03-08] MEDS: SENNOSIDES 1 TABLET PO SCH (21:21)
[2020-03-08 22:01] LABS: Amphetamine Screen,Urine Suspect positive; Barbiturate Screen,Urine None detected; Benzodiazepines Screen,Urine None detected; Cannabinoid Screen,Urine None detected; Cocaine Screen,Urine None detected; Opiate Screen,Urine Suspect Positive; Oxycodone, Urine Screen None detected; Phencyclidine Screen,Urine None detected
[2020-03-08] MEDS: ceFAZolin 1 GM VIAL IV SCH (23:53)
[2020-03-09] MEDS: HYDROcodone/APAP 10/325MG TABLET PO PRN ×5 (03:54→22:16)
[2020-03-09] MEDS: 0.9 % SODIUM CHLORIDE 10 ML SYRINGE IV SCH ×3 (05:43→23:26)
--- NOTE | 2020-03-09 07:19 | Internal Med Progress Note ---
SUBJECTIVE Subjective Patient information: Note initiated : 03/09/20 at 7:13 am Service Date, if different from initiated Date: [] Patient: Keli Byers 64 y/o F admitted on 03/08/20 for Open surgical wound. Chief Complaint: [] Interval history: History of present illness: 64-year-old female who had a right total knee arthroplasty several weeks ago. She had been in the ER several times since that time with pain management issues and was actually admitted for several days and then sent home with home health. It appears that she is unable to care for self at home. Fell several days ago and her incision site opened up but she did not immediately come to the ED. At some point EMS was called and they brought her into the ED. EMS noted her home to be quite filthy. Pt stated she has a cleaning person but who has not been by lately. Patient denies any pain to her knee. But she appeared sleepy in the ED. also was covered with feces and cat hair. Additionally relating to the fall she hit her head and has a small hematoma over the right forehead. CT head was unremarkable for any acute pathology but does show some mild cerebral atrophy. 03/09 Patient doing well post procedure from yesterday. Patient awake breakfast and eating. clear mind. Review of Systems: denies headache/fever/chills/nausea/vomiting/chest or abdominal pain/ cough/dyspnea/diarrhea. Otherwise see above. Constitutional Vitals: Vital Signs Temp Pulse Resp BP Pulse Ox 97.4 F 84 16 102/61 94 03/09/20 04:20 03/09/20 04:20 03/09/20 04:20 03/09/20 04:20 03/09/20 04:20 Period Temp Pulse Resp BP Sys/Velasquez Pulse Ox Last 24 Hr 97.2 F-98.8 F 66-102 13-20 102-149/61-89 94-100 Intake and Output 03/08/20 03/09/20 03/09/20 21:59 05:59 13:59 Intake Total 390 400 Output Total 300 Balance 390 100 Weight 83.688 kg Intake & Output: Intake & Output 03/08/20 03/09/20 03/09/20 21:59 05:59 13:59 Intake Total 390 400 Output Total 300 Balance 390 100 Weight 83.688 kg Intake: IV 150 Ancef 2 gm In Dextrose 5% in 50 Water 50 ml @ 100 mls/hr IV PREOP [facility] Rx#:[id number] Oral 240 400 Output: Void Amount 300 Other: Meal Egg salad, jello(2), fran crackers(3) Percent of Meal Consumed 100% Feeding Ability Independent Urine Appearance Clear Clear Clear Urine Color Bright Yellow Pale Bright Yellow Urine Odor Normal # Voids 1 Exam: General: alert, awake, No acute Distress Eyes/N/T: EOMI, Head/Neck: neck supple, , ecchymosis right forehead over eye CV: RRR, No murmurs, normal s1/s2 Pulm: Clear b/l, no wheezing/rhonchi/rales Abd: soft, nontender, +BS x4 Ext: no clubbing/cyanosis/edema. right leg in dressings Neuro: Alert, no focal deficits, moves all extremities, mentation clear Skin: warm/dry OBJ DATA Labs CBC & Chem 7: 03/09/20 05:21 03/08/20 11:20 Labs: Abnormal Lab Results 03/08/20 03/08/20 03/08/20 20:43 20:43 17:26 WBC RBC Hgb Hct [place] # (Auto) PT Sodium Chloride Creatinine AST C-Reactive Protein Globulin Urine Ketones 20 A Synovial Neutrophils 70 H Urine Opiates Screen Suspect positive A Ur Amphetamines Screen Suspect positive A 03/08/20 03/08/20 03/08/20 14:23 11:20 11:20 WBC RBC Hgb Hct [place] # (Auto) PT 14.9 H Sodium 129 L Chloride 94 L Creatinine 1.5 H AST 38 H C-Reactive Protein 5.30 H Globulin 2.1 L Urine Ketones Synovial Neutrophils Urine Opiates Screen Ur Amphetamines Screen 03/08/20 11:20 WBC 11.6 H RBC 3.16 L Hgb 9.4 L Hct 28.7 L [place] # (Auto) 0.94 H PT Sodium Chloride Creatinine AST C-Reactive Protein Globulin Urine Ketones Synovial Neutrophils Urine Opiates Screen Ur Amphetamines Screen Meds: Medications Hydrocodone Bitart/Acetaminophen ([place] 10/325mg) 0 tab PO Q4HP PRN; Protocol PRN Reason: Per Pain Protocol Last Admin: 03/09/20 03:54 Dose: 2 tab Documented by: Aspirin (Aspirin) 81 mg PO BID [facility] Last Admin: 03/08/20 21:20 Dose: 81 mg Documented by: Atorvastatin Calcium (Lipitor) 10 mg PO QHS [facility] Last Admin: 03/08/20 21:20 Dose: 10 mg Documented by: Bisacodyl (Dulcolax) 10 mg ND Q2-3DAYS PRN PRN Reason: Constipation Cefazolin Sodium (Ancef) 2 gm IV Q8H [facility] Stop: 03/09/20 08:01 Last Admin: 03/08/20 23:53 Dose: 2 gm Documented by: Docusate Sodium (Colace) 100 mg PO BID [facility] Last Admin: 03/08/20 21:20 Dose: 100 mg Documented by: Duloxetine HCl (Cymbalta) 60 mg PO BID [facility] Last Admin: 03/08/20 21:20 Dose: 60 mg Documented by: Gabapentin (Neurontin) 300 mg PO TID [facility] Last Admin: 03/08/20 21:20 Dose: 300 mg Documented by: Sodium Chloride (Sodium Chloride 0.9%) 1,000 mls @ 75 mls/hr IV .[id number] [facility] Stop: 03/09/20 20:39 Last Admin: 03/08/20 18:16 Dose: 75 mls/hr Documented by: Labetalol HCl (Trandate) 0 mg IV Q2HP PRN PRN Reason: Hypertension Lorazepam (Ativan) 1 mg PO TIDP PRN PRN Reason: Anxiety Last Admin: 03/08/20 21:20 Dose: 1 mg Documented by: Magnesium Hydroxide (Milk Of Magnesia) 30 ml PO BIDP PRN PRN Reason: Constipation Methocarbamol (Robaxin) 750 mg PO Q6HP PRN PRN Reason: Muscle Spasm Morphine Sulfate (Morphine) 0 mg IV Q1HP PRN; Protocol PRN Reason: Per Pain Protocol Nortriptyline HCl (Pamelor) 25 mg PO QHS [facility] Last Admin: 03/08/20 21:21 Dose: 25 mg Documented by: Omeprazole (Prilosec) 20 mg PO QDAY [facility] Ondansetron HCl (Zofran) 4 mg IV Q4HP PRN; Protocol PRN Reason: Nausea And Vomiting Pneumococcal Polyvalent Vaccine (Pneumovax 23) 0.5 ml IM .ONCE ONE Stop: 03/10/20 10:01 Polyethylene Glycol (Miralax) 17 gm PO DAILYP PRN PRN Reason: Constipation Senna (Senokot) 2 tab PO HS [facility] Last Admin: 03/08/20 21:21 Dose: 2 tab Documented by: Sodium Biphosphate/Sodium Phosphate (Fleets Adult) 1 dose ND Q3-4DAYS PRN PRN Reason: Constipation Sodium Chloride (Saline Flush) 10 ml IV Q8 [facility] Last Admin: 03/09/20 05:43 Dose: Not Given Documented by: Throat Lozenges (Cepacol) 1 lozenge PO PRN PRN PRN Reason: Sore Throat A/P Narrative A/P Narrative: A: *PINEDA on CKD II-III: likely prerenal, plus ACEI *Volume depletion: *Hyponatremia: *Inability to care for self at home: *AMS (drowsiness/confusion) & Falling: likely polypharmacy/pain meds with volume depletion/PINEDA and MCI + recent TKA + Neuropathy + being overweight/borderline obese all likely contributing to her falling at home -recent admit for pain with pain med adjustment, on robaxin/oxycodone. also takes ativan/lakhwinder. -gabapentin likely contributing to drowsiness given renal fxn, among the other likely contributors above -Resolved *Mild cognitive impairment (MCI) based on SLUMS score: -CT with mild generalized cerebral atrophy *Depression/anxiety: *HTN/HLD: *GERD: *Chronic pain: *Neuropathy: *Incision site dehiscence from previous TKA: 2/2 fall *Overweight/borderline Obese: *Generalized weakness/deconditioning/debility: P: -Ortho for knee -IVF's -f/u renal fxn -restart lakhwinder renally dose if necessary, d/c home fent patch up discharge -Abx, duration pending cx's -cont duloxetine -hold acei for pineda -hold ativan for sedation -pt/ot -CM for placement -ppx:per ortho Time Spent With Patient Time: Total time spent is greater than 50% in coordination of care (as documented) at patient's floor/unit and/or counseling patient: QUALITY VTE Deep Vein Thrombosis/Pulmonary Embolism Present on Admission: No
--- NOTE | 2020-03-09 07:37 | Operative Note ---
DATE OF OPERATION: 03/08/2020 PREOPERATIVE DIAGNOSIS: Traumatically dehisced right total knee incision. POSTOPERATIVE DIAGNOSIS: Traumatically dehisced right total knee incision. PROCEDURE: Secondary wound closure. SURGEON: Jose Manuel Tinoco MD MANAGER TESTING: Anshu Moss PA-C. This providers expertise and technical skill were required throughout the case. The PA assisted with preoperative coordination, intraoperative retraction, wound closure, and dressing and splint application, as well as postoperative documentation and care coordination. ANESTHESIA: General, done by Rohit Soares CRNA ESTIMATED BLOOD LOSS: Zero. TOURNIQUET TIME: About 40 minutes. DESCRIPTION OF PROCEDURE: General anesthesia was obtained. The wound was dehisced probably for up to 2 days after the patient took a fall at home. It was prepped and draped. The incision was cleansed with 3 liters of jet lavage with gentamicin. Old sutures were removed. There was no gross contamination except for a small amount of hair noted in the wound. The wound was fully dehisced, but the retinaculum and quadriceps repair were intact. After initial irrigation, I aspirated the joint through the lateral retinaculum and we got about 25 mL of bloody fluid. This was sent for cell count and for two cultures. I then irrigated the anterior aspect of the wound and the entire wound with IrriSept and jet lavage using a total of 9 liters of jet lavage fluid. We used 12 mL of absorbable antibiotic beads. This was placed above the quadriceps. The incision was then closed using 0 Prolene in a mattress pattern as well as 2-0 Prolene using an Allgower-Donati technique. A silver based dressing was then applied after wound closure. The sponge and needle count was correct. The patient was placed into a knee ranger set at 0-30 degrees. She tolerated the procedure well and was taken to the recovery room in stable condition. TJF:kh Job ID: [id number] Doc ID: [id number] Jose Manuel Tinoco MD
[2020-03-09 08:10] LABS: Hematocrit 28.4 % (36.0-48.0); Hemoglobin 9.3 g/dL (12.0-15.0)
--- NOTE | 2020-03-09 08:41 | Orthopedic Progress Note ---
SUBJECTIVE Subjective Patient information: Note initiated : 03/09/20 at 8:40 am Service Date, if different from initiated Date: [] Patient: Keli Byers 64 y/o F admitted on 03/08/20 for Open surgical wound. Chief Complaint: [] Constitutional Vitals: Vital Signs Temp Pulse Resp BP Pulse Ox 98.5 F 84 16 111/68 94 03/09/20 07:37 03/09/20 07:44 03/09/20 07:44 03/09/20 07:37 03/09/20 07:44 Period Temp Pulse Resp BP Sys/Velasquez Pulse Ox Last 24 Hr 97.2 F-98.8 F 66-102 13-20 102-149/61-89 94-100 Intake and Output 03/08/20 03/09/20 03/09/20 21:59 05:59 13:59 Intake Total 390 400 Output Total 300 Balance 390 100 Weight 184 lb 8 oz Intake & Output: Intake & Output 03/08/20 03/09/20 03/09/20 21:59 05:59 13:59 Intake Total 390 400 Output Total 300 Balance 390 100 Weight 184 lb 8 oz Intake: IV 150 Ancef 2 gm In Dextrose 5% in 50 Water 50 ml @ 100 mls/hr IV PREOP [facility] Rx#:[id number] Oral 240 400 Output: Void Amount 300 Other: Meal Egg salad, jello(2), fran crackers(3) Percent of Meal Consumed 100% Feeding Ability Independent Urine Appearance Clear Clear Clear Urine Color Bright Yellow Pale Bright Yellow Urine Odor Normal # Voids 1 OBJ DATA Labs CBC & Chem 7: 03/09/20 05:21 03/08/20 11:20 Labs: Abnormal Lab Results 03/09/20 03/08/20 03/08/20 05:21 20:43 20:43 WBC RBC Hgb 9.3 L Hct 28.4 L [place] # (Auto) PT Sodium Chloride Creatinine AST C-Reactive Protein Globulin Urine Ketones 20 A Synovial Neutrophils Urine Opiates Screen Suspect positive A Ur Amphetamines Screen Suspect positive A 03/08/20 03/08/20 03/08/20 17:26 14:23 11:20 WBC RBC Hgb Hct [place] # (Auto) PT Sodium 129 L Chloride 94 L Creatinine 1.5 H AST 38 H C-Reactive Protein 5.30 H Globulin 2.1 L Urine Ketones Synovial Neutrophils 70 H Urine Opiates Screen Ur Amphetamines Screen 03/08/20 03/08/20 11:20 11:20 WBC 11.6 H RBC 3.16 L Hgb 9.4 L Hct 28.7 L [place] # (Auto) 0.94 H PT 14.9 H Sodium Chloride Creatinine AST C-Reactive Protein Globulin Urine Ketones Synovial Neutrophils Urine Opiates Screen Ur Amphetamines Screen Meds: Medications Hydrocodone Bitart/Acetaminophen ([place] 10/325mg) 0 tab PO Q4HP PRN; Protocol PRN Reason: Per Pain Protocol Last Admin: 03/09/20 03:54 Dose: 2 tab Documented by: Aspirin (Aspirin) 81 mg PO BID [facility] Last Admin: 03/08/20 21:20 Dose: 81 mg Documented by: Atorvastatin Calcium (Lipitor) 10 mg PO QHS [facility] Last Admin: 03/08/20 21:20 Dose: 10 mg Documented by: Bisacodyl (Dulcolax) 10 mg NM Q2-3DAYS PRN PRN Reason: Constipation Docusate Sodium (Colace) 100 mg PO BID [facility] Last Admin: 03/08/20 21:20 Dose: 100 mg Documented by: Duloxetine HCl (Cymbalta) 60 mg PO BID [facility] Last Admin: 03/08/20 21:20 Dose: 60 mg Documented by: Gabapentin (Neurontin) 300 mg PO TID [facility] Last Admin: 03/08/20 21:20 Dose: 300 mg Documented by: Sodium Chloride (Sodium Chloride 0.9%) 1,000 mls @ 75 mls/hr IV .[id number] [facility] Stop: 03/09/20 20:39 Last Admin: 03/08/20 18:16 Dose: 75 mls/hr Documented by: Labetalol HCl (Trandate) 0 mg IV Q2HP PRN PRN Reason: Hypertension Lorazepam (Ativan) 1 mg PO TIDP PRN PRN Reason: Anxiety Last Admin: 03/08/20 21:20 Dose: 1 mg Documented by: Magnesium Hydroxide (Milk Of Magnesia) 30 ml PO BIDP PRN PRN Reason: Constipation Methocarbamol (Robaxin) 750 mg PO Q6HP PRN PRN Reason: Muscle Spasm Morphine Sulfate (Morphine) 0 mg IV Q1HP PRN; Protocol PRN Reason: Per Pain Protocol Nortriptyline HCl (Pamelor) 25 mg PO QHS [facility] Last Admin: 03/08/20 21:21 Dose: 25 mg Documented by: Omeprazole (Prilosec) 20 mg PO QDAY [facility] Ondansetron HCl (Zofran) 4 mg IV Q4HP PRN; Protocol PRN Reason: Nausea And Vomiting Pneumococcal Polyvalent Vaccine (Pneumovax 23) 0.5 ml IM .ONCE ONE Stop: 03/10/20 10:01 Polyethylene Glycol (Miralax) 17 gm PO DAILYP PRN PRN Reason: Constipation Senna (Senokot) 2 tab PO HS [facility] Last Admin: 03/08/20 21:21 Dose: 2 tab Documented by: Sodium Biphosphate/Sodium Phosphate (Fleets Adult) 1 dose NM Q3-4DAYS PRN PRN Reason: Constipation Sodium Chloride (Saline Flush) 10 ml IV Q8 [facility] Last Admin: 03/09/20 05:43 Dose: Not Given Documented by: Throat Lozenges (Cepacol) 1 lozenge PO PRN PRN PRN Reason: Sore Throat A/P Time Spent With Patient Time: Total time spent is greater than 50% in coordination of care (as documented) at patient's floor/unit and/or counseling patient:
[2020-03-09] MEDS: GABAPENTIN 300 MG CAPSULE PO SCH ×3 (08:43→22:16)
[2020-03-09] MEDS: DULoxetine 30 MG CAPSULE PO SCH ×2 (08:43→22:15)
[2020-03-09] MEDS: ASPIRIN 81 MG TAB.CHEW PO SCH ×2 (08:43→22:16)
[2020-03-09] MEDS: OMEPRAZOLE 20 MG CAPSULE PO SCH (08:44)
[2020-03-09] MEDS: 0.9 % SODIUM CHLORIDE 1,000 ML IV SCH (08:45)
[2020-03-09] MEDS: DOCUSATE SODIUM 100 MG CAPSULE PO SCH ×2 (08:45→22:15)
--- NOTE | 2020-03-09 08:46 | Orthopedic Progress Note ---
SUBJECTIVE Subjective Patient information: Note initiated : 03/09/20 at 8:41 am Service Date, if different from initiated Date: [] Patient: Keli Byers 64 y/o F admitted on 03/08/20 for Open surgical wound. Chief Complaint: [] POD 1, s/p secondary wound closure Constitutional Vitals: Vital Signs Temp Pulse Resp BP Pulse Ox 98.5 F 84 16 111/68 94 03/09/20 07:37 03/09/20 07:44 03/09/20 07:44 03/09/20 07:37 03/09/20 07:44 Period Temp Pulse Resp BP Sys/Velasquez Pulse Ox Last 24 Hr 97.2 F-98.8 F 66-102 13-20 102-149/61-89 94-100 Intake and Output 03/08/20 03/09/20 03/09/20 21:59 05:59 13:59 Intake Total 390 400 Output Total 300 Balance 390 100 Weight 184 lb 8 oz Intake & Output: Intake & Output 03/08/20 03/09/20 03/09/20 21:59 05:59 13:59 Intake Total 390 400 Output Total 300 Balance 390 100 Weight 184 lb 8 oz Intake: IV 150 Ancef 2 gm In Dextrose 5% in 50 Water 50 ml @ 100 mls/hr IV PREOP [facility] Rx#:[id number] Oral 240 400 Output: Void Amount 300 Other: Meal Egg salad, jello(2), fran crackers(3) Percent of Meal Consumed 100% Feeding Ability Independent Urine Appearance Clear Clear Clear Urine Color Bright Yellow Pale Bright Yellow Urine Odor Normal # Voids 1 Exam: brace intact . dressing dry peroneal nerve intact OBJ DATA Labs CBC & Chem 7: 03/09/20 05:21 03/08/20 11:20 Labs: Abnormal Lab Results 03/09/20 03/08/20 03/08/20 05:21 20:43 20:43 WBC RBC Hgb 9.3 L Hct 28.4 L [place] # (Auto) PT Sodium Chloride Creatinine AST C-Reactive Protein Globulin Urine Ketones 20 A Synovial Neutrophils Urine Opiates Screen Suspect positive A Ur Amphetamines Screen Suspect positive A 03/08/20 03/08/20 03/08/20 17:26 14:23 11:20 WBC RBC Hgb Hct Tucker # (Auto) PT Sodium 129 L Chloride 94 L Creatinine 1.5 H AST 38 H C-Reactive Protein 5.30 H Globulin 2.1 L Urine Ketones Synovial Neutrophils 70 H Urine Opiates Screen Ur Amphetamines Screen 03/08/20 03/08/20 11:20 11:20 WBC 11.6 H RBC 3.16 L Hgb 9.4 L Hct 28.7 L Tucker # (Auto) 0.94 H PT 14.9 H Sodium Chloride Creatinine AST C-Reactive Protein Globulin Urine Ketones Synovial Neutrophils Urine Opiates Screen Ur Amphetamines Screen Meds: Medications Hydrocodone Bitart/Acetaminophen ([place] 10/325mg) 0 tab PO Q4HP PRN; Protocol PRN Reason: Per Pain Protocol Last Admin: 03/09/20 03:54 Dose: 2 tab Documented by: Aspirin (Aspirin) 81 mg PO BID [facility] Last Admin: 03/08/20 21:20 Dose: 81 mg Documented by: Atorvastatin Calcium (Lipitor) 10 mg PO QHS [facility] Last Admin: 03/08/20 21:20 Dose: 10 mg Documented by: Bisacodyl (Dulcolax) 10 mg [place] Q2-3DAYS PRN PRN Reason: Constipation Docusate Sodium (Colace) 100 mg PO BID [facility] Last Admin: 03/08/20 21:20 Dose: 100 mg Documented by: Duloxetine HCl (Cymbalta) 60 mg PO BID [facility] Last Admin: 03/08/20 21:20 Dose: 60 mg Documented by: Gabapentin (Neurontin) 300 mg PO TID [facility] Last Admin: 03/08/20 21:20 Dose: 300 mg Documented by: Sodium Chloride (Sodium Chloride 0.9%) 1,000 mls @ 75 mls/hr IV [id number] [facility] Stop: 03/09/20 20:39 Last Admin: 03/08/20 18:16 Dose: 75 mls/hr Documented by: Labetalol HCl (Trandate) 0 mg IV Q2HP PRN PRN Reason: Hypertension Lorazepam (Ativan) 1 mg PO TIDP PRN PRN Reason: Anxiety Last Admin: 03/08/20 21:20 Dose: 1 mg Documented by: Magnesium Hydroxide (Milk Of Magnesia) 30 ml PO BIDP PRN PRN Reason: Constipation Methocarbamol (Robaxin) 750 mg PO Q6HP PRN PRN Reason: Muscle Spasm Morphine Sulfate (Morphine) 0 mg IV Q1HP PRN; Protocol PRN Reason: Per Pain Protocol Nortriptyline HCl (Pamelor) 25 mg PO QHS [facility] Last Admin: 03/08/20 21:21 Dose: 25 mg Documented by: Omeprazole (Prilosec) 20 mg PO QDAY [facility] Ondansetron HCl (Zofran) 4 mg IV Q4HP PRN; Protocol PRN Reason: Nausea And Vomiting Pneumococcal Polyvalent Vaccine (Pneumovax 23) 0.5 ml IM .ONCE ONE Stop: 03/10/20 10:01 Polyethylene Glycol (Miralax) 17 gm PO DAILYP PRN PRN Reason: Constipation Senna (Senokot) 2 tab PO HS [facility] Last Admin: 03/08/20 21:21 Dose: 2 tab Documented by: Sodium Biphosphate/Sodium Phosphate (Fleets Adult) 1 dose [place] Q3-4DAYS PRN PRN Reason: Constipation Sodium Chloride (Saline Flush) 10 ml IV Q8 [facility] Last Admin: 03/09/20 05:43 Dose: Not Given Documented by: Throat Lozenges (Cepacol) 1 lozenge PO PRN PRN PRN Reason: Sore Throat A/P Assessment and plan (1) Dehiscence of wound: Status: Acute Comment: traumatic wound dehiscence assumed infection for now. Continue Ancef, add oral or change antibiotics per Dr Slaughter Time Spent With Patient Time: Total time spent is greater than 50% in coordination of care (as documented) at patient's floor/unit and/or counseling patient:
[2020-03-09] MEDS ORDERED: ceFAZolin 2 GM in DEXTROSE 5% IN WATER 50 ML IV SCH (09:00)
[2020-03-09] MEDS ORDERED: LISINOPRIL 10 MG TABLET PO SCH (09:00)
[2020-03-09] MEDS: ceFAZolin 1 GM VIAL IV SCH ×3 (09:02→22:45)
[2020-03-09 10:25] LABS: ALT/SGPT 15 U/L (<40); AST/SGOT 31 U/L (<32); Albumin 3.4 gm/dL (3.2-5.2); Albumin/Globulin Ratio 1.5 (1.0-2.3); Alkaline Phosphatase 75 U/L (39-117); Bilirubin,Direct < 0.2 mg/dL (<0.3); Bilirubin,Total 0.3 mg/dL (0.1-1.0); Blood Urea Nitrogen 13 mg/dL (8-23); Calcium 8.3 mg/dL (8.6-10.4); Carbon Dioxide 24 mmol/L (22-30); Chloride 98 mmol/L (96-108); Globulin 2.2 gm/dL (2.2-3.7); Glomerular Filtration Rate 58; Glucose 216 mg/dL (70-105); Lactate Dehydrogenase 324 U/L (135-225); Phosphorous 2.7 mg/dL (2.5-4.5); Triglycerides 69 mg/dL (<150); Uric Acid 5.4 mg/dL (2.5-8.0)
[2020-03-09] MEDS: MINOCYCLINE HCL 50 MG CAPSULE PO SCH (16:24)
[2020-03-09] MEDS: NORTRIPTYLINE 25 MG CAPSULE PO SCH (22:15)
[2020-03-09] MEDS: SENNOSIDES 1 TABLET PO SCH (22:15)
[2020-03-09] MEDS: ATORVASTATIN 10 MG TABLET PO SCH (22:22)
[2020-03-10] MEDS: MINOCYCLINE HCL 50 MG CAPSULE PO SCH (03:47)
[2020-03-10] MEDS: ceFAZolin 1 GM VIAL IV SCH ×2 (05:59→14:57)
[2020-03-10] MEDS: 0.9 % SODIUM CHLORIDE 10 ML SYRINGE IV SCH ×2 (05:59→14:58)
[2020-03-10] MEDS: HYDROcodone/APAP 10/325MG TABLET PO PRN (06:22)
[2020-03-10 07:13] LABS: Hematocrit 25.8 % (36.0-48.0); Hemoglobin 8.2 g/dL (12.0-15.0)
--- NOTE | 2020-03-10 07:37 | Internal Med Progress Note ---
SUBJECTIVE Subjective Patient information: Note initiated : 03/10/20 at 7:34 am Service Date, if different from initiated Date: [] Patient: Keli Byers 64 y/o F admitted on 03/08/20 for Open surgical wound. Chief Complaint: [] Interval history: History of present illness: 64-year-old female who had a right total knee arthroplasty several weeks ago. She had been in the ER several times since that time with pain management issues and was actually admitted for several days and then sent home with home health. It appears that she is unable to care for self at home. Fell several days ago and her incision site opened up but she did not immediately come to the ED. At some point EMS was called and they brought her into the ED. EMS noted her home to be quite filthy. Pt stated she has a cleaning person but who has not been by lately. Patient denies any pain to her knee. But she appeared sleepy in the ED. also was covered with feces and cat hair. Additionally relating to the fall she hit her head and has a small hematoma over the right forehead. CT head was unremarkable for any acute pathology but does show some mild cerebral atrophy. 03/09 Patient doing well post procedure from yesterday. Patient awake breakfast and eating. clear mind. 03/10 Feeling well. No new pains or complaints. Review of Systems: denies headache/fever/chills/nausea/vomiting/chest or abdominal pain/cough/dyspnea/diarrhea. Otherwise see above. Constitutional Vitals: Vital Signs Temp Pulse Resp BP Pulse Ox 97.8 F 82 16 118/71 93 03/10/20 03:48 03/10/20 03:48 03/10/20 03:48 03/10/20 03:48 03/10/20 03:48 Period Temp Pulse Resp BP Sys/Velasquez Pulse Ox Last 24 Hr 97.8 F-98.9 F 81-95 - 111-122/68-77 93-97 Intake and Output 03/09/20 03/10/20 03/10/20 21:59 05:59 13:59 Intake Total 420 700 400 Output Total 300 330 Balance 120 370 400 Weight 81.873 kg Intake & Output: Intake & Output 03/09/20 03/10/20 03/10/20 21:59 05:59 13:59 Intake Total 420 700 400 Output Total 300 330 Balance 120 370 400 Weight 81.873 kg Intake: Oral 420 700 400 Output: Void Amount 300 330 Other: Meal Dinner Percent of Meal Consumed 100% Urine Appearance Clear Clear Urine Color Bright Yellow Bright Yellow # Voids 1 Exam: General: alert, awake, No acute Distress, obese Eyes/N/T: EOMI, Head/Neck: neck supple, , ecchymosis right forehead over eye CV: RRR, No murmurs, Pulm: Clear b/l, no wheezing/rhonchi/rales Abd: soft, nontender, +BS x4 Ext: no clubbing/cyanosis/edema. right leg in dressings Neuro: Alert, no focal deficits, moves all extremities, mentation clear Skin: warm/dry OBJ DATA Labs CBC & Chem 7: 03/10/20 05:37 03/09/20 05:21 Labs: Abnormal Lab Results 03/10/20 03/09/20 03/09/20 05:37 05:21 05:21 WBC RBC Hgb 8.2 L 9.3 L Hct 25.8 L 28.4 L [place] # (Auto) PT Sodium Chloride Creatinine Glucose 216 H Calcium 8.3 L AST Lactate Dehydrogenase 324 H C-Reactive Protein Total Protein 5.6 L Globulin Urine Ketones Synovial Neutrophils Urine Opiates Screen Ur Amphetamines Screen 03/08/20 03/08/20 03/08/20 20:43 20:43 17:26 WBC RBC Hgb Hct [place] # (Auto) PT Sodium Chloride Creatinine Glucose Calcium AST Lactate Dehydrogenase C-Reactive Protein Total Protein Globulin Urine Ketones 20 A Synovial Neutrophils 70 H Urine Opiates Screen Suspect positive A Ur Amphetamines Screen Suspect positive A 03/08/20 03/08/20 03/08/20 14:23 11:20 11:20 WBC RBC Hgb Hct [place] # (Auto) PT 14.9 H Sodium 129 L Chloride 94 L Creatinine 1.5 H Glucose Calcium AST 38 H Lactate Dehydrogenase C-Reactive Protein 5.30 H Total Protein Globulin 2.1 L Urine Ketones Synovial Neutrophils Urine Opiates Screen Ur Amphetamines Screen 03/08/20 11:20 WBC 11.6 H RBC 3.16 L Hgb 9.4 L Hct 28.7 L [place] # (Auto) 0.94 H PT Sodium Chloride Creatinine Glucose Calcium AST Lactate Dehydrogenase C-Reactive Protein Total Protein Globulin Urine Ketones Synovial Neutrophils Urine Opiates Screen Ur Amphetamines Screen Meds: Medications Hydrocodone Bitart/Acetaminophen ([place] 10/325mg) 0 tab PO Q4HP PRN; Protocol PRN Reason: Per Pain Protocol Last Admin: 03/10/20 06:22 Dose: 2 tab Documented by: Aspirin (Aspirin) 81 mg PO BID [facility] Last Admin: 03/09/20 22:16 Dose: 81 mg Documented by: Atorvastatin Calcium (Lipitor) 10 mg PO QHS [facility] Last Admin: 03/09/20 22:22 Dose: 10 mg Documented by: Bisacodyl (Dulcolax) 10 mg [place] Q2-3DAYS PRN PRN Reason: Constipation Cefazolin Sodium (Ancef) 2 gm IV Q8H [facility] Last Admin: 03/10/20 05:59 Dose: 2 gm Documented by: Docusate Sodium (Colace) 100 mg PO BID [facility] Last Admin: 03/09/20 22:15 Dose: 100 mg Documented by: Duloxetine HCl (Cymbalta) 60 mg PO BID [facility] Last Admin: 03/09/20 22:15 Dose: 60 mg Documented by: Gabapentin (Neurontin) 300 mg PO TID [facility] Last Admin: 03/09/20 22:16 Dose: 300 mg Documented by: Labetalol HCl (Trandate) 0 mg IV Q2HP PRN PRN Reason: Hypertension Lorazepam (Ativan) 1 mg PO TIDP PRN PRN Reason: Anxiety Last Admin: 03/08/20 21:20 Dose: 1 mg Documented by: Magnesium Hydroxide (Milk Of Magnesia) 30 ml PO BIDP PRN PRN Reason: Constipation Methocarbamol (Robaxin) 750 mg PO Q6HP PRN PRN Reason: Muscle Spasm Minocycline HCl (Minocycline Hcl) 150 mg PO [id number] [facility] Last Admin: 03/10/20 03:47 Dose: Not Given Documented by: Morphine Sulfate (Morphine) 0 mg IV Q1HP PRN; Protocol PRN Reason: Per Pain Protocol Nortriptyline HCl (Pamelor) 25 mg PO QHS [facility] Last Admin: 03/09/20 22:15 Dose: 25 mg Documented by: Omeprazole (Prilosec) 20 mg PO QDAY [facility] Last Admin: 03/09/20 08:44 Dose: 20 mg Documented by: Ondansetron HCl (Zofran) 4 mg IV Q4HP PRN; Protocol PRN Reason: Nausea And Vomiting Pneumococcal Polyvalent Vaccine (Pneumovax 23) 0.5 ml IM .ONCE ONE Stop: 03/10/20 10:01 Polyethylene Glycol (Miralax) 17 gm PO DAILYP PRN PRN Reason: Constipation Senna (Senokot) 2 tab PO HS [facility] Last Admin: 03/09/20 22:15 Dose: 2 tab Documented by: Sodium Biphosphate/Sodium Phosphate (Fleets Adult) 1 dose [place] Q3-4DAYS PRN PRN Reason: Constipation Sodium Chloride (Saline Flush) 10 ml IV Q8 [facility] Last Admin: 03/10/20 05:59 Dose: 10 ml Documented by: Throat Lozenges (Cepacol) 1 lozenge PO PRN PRN PRN Reason: Sore Throat A/P Assessment and plan (1) Dehiscence of wound: Status: Acute Narrative A/P Narrative: A: *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 also takes ativan/lakhwinder. -gabapentin likely contributing to drowsiness given renal fxn, among the other likely contributors above -REsolved *Mild cognitive impairment (MCI) based on SLUMS score: -CT with mild generalized cerebral atrophy *Depression/anxiety: *HTN/HLD: *GERD: *Chronic pain: *Neuropathy: *Incision site dehiscence from previous TKA: 2/2 fall *Overweight/borderline Obese: *Generalized weakness/deconditioning/debility: *Hyponatremia: resolved P: -Ortho for knee -restart lakhwinder at lower dose for now and f/u renal fxn, -d/c home fent patch up discharge, restart prn norco -prelim of one set of cultures negative, will need 1-week of Abx from time of washout for contaminated wound, d/c on Augmentin to finish course -cont duloxetine -restart lisinopril at lower dose -hold ativan for sedation -pt/ot -CM for placement -ppx:per ortho ASA bid Time Spent With Patient Time: Total time spent is greater than 50% in coordination of care (as documented) at patient's floor/unit and/or counseling patient: QUALITY VTE Deep Vein Thrombosis/Pulmonary Embolism Present on Admission: No
[2020-03-10] MEDS ORDERED: HYDROcodone/APAP 5/325MG TABLET PO PRN (08:01)
--- NOTE | 2020-03-10 08:14 | Discharge Summary ---
Discharge Provider Provider Patient information: Note initiated : 03/10/20 at 8:12 am Service Date, if different from initiated Date: [] Patient: Keli Byers 64 y/o F admitted on 03/08/20 for Open surgical wound. Chief Complaint: [] Date of admission: 03/08/20 18:01 Discharge date: 03/10/20 Primary care physician: Myrtle Merida Admitting clinician: abbie Attending physician on admission: Jose Manuel Tinoco Consults: 03/08/20 16:51 Consult to Physician [CONS] Routine Comment: Consulting Provider: Eulalio Slaughter Reason For Exam: Physician to Consult 03/08/20 17:03 Consult to Physician [CONS] Routine Comment: Consulting Provider: Eulalio Slaughter Reason For Exam: Physician to Consult 03/09/20 07:56 Consult to Physician [CONS] Routine Comment: Consulting Provider: Jose Manuel Tinoco Reason For Exam: Physician to Consult 03/09/20 12:25 Consult to Physician [CONS] Routine Comment: [facility] referral Consulting Provider: Franklin Milan Reason For Exam: Physician to Consult Attending physician on discharge: abbie COURSE Hospital Course Hospital course: The pt was admitted, 3 weeks sfter a total knee, with a traumatic wound dehiscence after fall at home. So far, the infection is looking supf only. Wound secondarily closed on 03/08. Will get IV ancef and minicycline for a miniomum of 2 weeks. She will be transferred to a group home home as she proved she can't take care of herself at home. Discharge diagnosis: traumatic surgical wound dehiscence right knee Time Spent with Patient Time attestation: Total time spent providing and/or coordinating discharge services: Physical Examination Exam Clean and dry: Yes Weight bearing status: full Range of motion: 0-30 DC Instructions-General Patient Instructions Dressing Care: Aquacel Ag - leave on for 5 days Discharge Plan Patient/Caregiver Discharge Instructions Activity: ambulate only with your walker Diet: Regular Diet Prescriptions: No Action duloxetine [Cymbalta] 60 MG capsule,delayed release(DR/EC) 60 mg PO BID RF: 0 gabapentin 600 mg Tablet 600 mg PO TID RF: 0 nortriptyline 25 mg Capsule 25 mg PO QHS RF: 0 lisinopril 10 mg Tablet 10 mg PO QDAY RF: 0 omeprazole 20 mg Capsule,Delayed Release(Dr/Ec) 20 mg PO QDAY RF: 0 lorazepam 1 mg Tablet 1 mg PO TID PRN (Reason: Anxiety) RF: 0 Tymlos 80 mcg (3,120 mcg/1.56 mL) Pen Injector 80 mcg SUBCUT QDAY RF: 0 methocarbamol 750 mg Tablet 750 mg PO Q6HP PRN (Reason: Muscle Spasm) Qty: 60 RF: 0 atorvastatin 10 mg tablet 10 mg PO QHS RF: 0 hydrocodone-acetaminophen 10-325 mg Tablet 1 - 2 tab PO Q4H PRN (Reason: Pain) RF: 0 Follow Up Plan Follow up with: Jose Manuel Tinoco MD [Physician] - 03/15/20 9:20 am Myrtle Merida ARNP [Primary Care Provider] - Patient Disposition: Xfer SNF Prognosis: Fair Discharge Orders: Discharge Order (Routine); Ordered 03/10/20 Ordered By: Jose Manuel Tinoco Pending Pending Pending: Resuscitation Status Full Code Diet Regular Diet Start FriMar 08 Dinner Aspirin (Aspirin) 81 mg PO BID [facility] Last Admin: 03/09/20 22:16 Dose: 81 mg Documented by: Admin: 03/09/20 08:43 Dose: 81 mg Documented by: Admin: 03/08/20 21:20 Dose: 81 mg Documented by: KEATON Atorvastatin Calcium (Lipitor) 10 mg PO QHS [facility] Last Admin: 03/09/20 22:22 Dose: 10 mg Documented by: Admin: 03/08/20 21:20 Dose: 10 mg Documented by: KEATON Cefazolin Sodium (Ancef) 2 gm IV Q8H [facility] Last Admin: 03/10/20 05:59 Dose: 2 gm Documented by: Admin: 03/09/20 22:45 Dose: 2 gm Documented by: Admin: 03/09/20 15:30 Dose: 2 gm Documented by: XANDER Docusate Sodium (Colace) 100 mg PO BID [facility] Last Admin: 03/09/20 22:15 Dose: 100 mg Documented by: Admin: 03/09/20 08:45 Dose: 100 mg Documented by: Admin: 03/08/20 21:20 Dose: 100 mg Documented by: KEATON Duloxetine HCl (Cymbalta) 60 mg PO BID [facility] Last Admin: 03/09/20 22:15 Dose: 60 mg Documented by: Admin: 03/09/20 08:43 Dose: 60 mg Documented by: Admin: 03/08/20 21:20 Dose: 60 mg Documented by: KEATON Gabapentin (Neurontin) 300 mg PO TID [facility] Last Admin: 03/09/20 22:16 Dose: 300 mg Documented by: Admin: 03/09/20 15:30 Dose: 300 mg Documented by: Admin: 03/09/20 08:43 Dose: 300 mg Documented by: Admin: 03/08/20 21:20 Dose: 300 mg Documented by: KEATON Lorazepam (Ativan) 1 mg PO TIDP PRN PRN Reason: Anxiety Last Admin: 03/08/20 21:20 Dose: 1 mg Documented by: KEATON Minocycline HCl (Minocycline Hcl) 150 mg PO [id number] [facility] Last Admin: 03/10/20 03:47 Dose: Not Given Documented by: Admin: 03/09/20 16:24 Dose: Not Given Documented by: XANDER Nortriptyline HCl (Pamelor) 25 mg PO QHS [facility] Last Admin: 03/09/20 22:15 Dose: 25 mg Documented by: Admin: 03/08/20 21:21 Dose: 25 mg Documented by: KEATON Omeprazole (Prilosec) 20 mg PO QDAY [facility] Last Admin: 03/09/20 08:44 Dose: 20 mg Documented by: XANDER Senna (Senokot) 2 tab PO HS [facility] Last Admin: 03/09/20 22:15 Dose: 2 tab Documented by: Admin: 03/08/20 21:21 Dose: 2 tab Documented by: KEATON Sodium Chloride (Saline Flush) 10 ml IV Q8 [facility] Last Admin: 03/10/20 05:59 Dose: 10 ml Documented by: Admin: 03/09/20 23:26 Dose: 10 ml Documented by: Admin: 03/09/20 15:07 Dose: Not Given Documented by: Admin: 03/09/20 05:43 Dose: Not Given Documented by: Admin: 03/08/20 21:11 Dose: Not Given Documented by: KEATON Shift Summary 03/10/20 04:17 Shift Summary by Rosi Madden Pt is A&O x4 and calls appropriately. Admitted for open surgical wound, had secondary wound closure done. Brace to right leg is to be left on at all times, but pt can ambulate. Pain being controlled with 1-2 hydrocodone 10mg. Administered 2 tabs once this shift. No c/o nausea. Ambulates to the bathroom with one assist, FWW and gait belt. VSS on RA. Receiving Ancef. IV to left hand SL. Will update at bedside. Initialized on 03/10/20 04:17 - END OF NOTE
[2020-03-10] MEDS: DULoxetine 30 MG CAPSULE PO SCH (08:30)
[2020-03-10] MEDS: OMEPRAZOLE 20 MG CAPSULE PO SCH (08:31)
[2020-03-10] MEDS: DOCUSATE SODIUM 100 MG CAPSULE PO SCH (08:31)
[2020-03-10] MEDS: ASPIRIN 81 MG TAB.CHEW PO SCH (08:31)
[2020-03-10] MEDS: GABAPENTIN 300 MG CAPSULE PO SCH (08:31)
[2020-03-10] MEDS ORDERED: LISINOPRIL 5 MG TABLET PO SCH (09:00)
[2020-03-10] MEDS ORDERED: PNEUMOCOCCAL 23-VAL P-SAC VAC 0.5 ML SYRINGE IM ONE (10:00)
[2020-03-10] MEDS ORDERED: FLU VACC QS2020-21(6MOS UP)/PF 60 MCG/0.5 ML SYRINGE IM ONE ×2 (10:00→10:45)
[2020-03-22 05:26] LABS: Opiate Confirmation Positive
== END 2020-03-10 15:25 | DRG 908 ==
LOC: ED 10:38 → SUR 14:54 → MEDSUR 18:01
PROVIDERS: ADMIT Orthopaedic Surgery Foot and Ankle Surgery; ATTEND Orthopaedic Surgery Foot and Ankle Surgery